=== PATIENT | male | born 1950 | race Caucasian/White ===

== ENCOUNTER 2017-04-04 13:06 | Inpatient (IN) ==
[2017-04-04 14:16] LABS: Bilirubin,Urine Small (Negative); Blood,Urine Negative (Negative); Clarity,Urine Clear (Clear); Color,Urine Dark Yellow (Yellow); Glucose,Urine (UA) Normal (Normal); Ketones,Urine Trace mg/dL (Negative); Leukocyte Esterase,Urine Negative (Negative); Nitrite,Urine Negative (Negative); PH,Urine 5.5 pH Units (5.0-8.0); Protein,Urine 30 mg/dL (Neg-Trace); Specific Gravity,Urine 1.028 (1.010-1.025); Urobilinogen,Urine Normal (Normal)
[2017-04-04 14:18] LABS: Bacteria,Urine None Seen per hpf (None-Few); Hyaline Casts,Urine Moderate per lpf (None-Few); Squamous Epithelial Cell,Urine Many per lpf (None-Few)
[2017-04-04] MEDS ORDERED: *HR* FentaNYL (PF) 100 MCG/2 ML VIAL IVP ONE (14:26)
[2017-04-04] MEDS ORDERED: 0.9 % Sodium Chloride 1,000 ML IVC ONE (14:26)
--- NOTE | 2017-04-04 14:26 | Emergency Department Note ---
Disposition Clinical Impression: Intra-abdominal free air of unknown etiology Colon cancer Qualifiers: Colon location: transverse Qualified Code(s): C18.4 - Malignant neoplasm of transverse colon Abdominal pain Qualifiers: Abdominal location: generalized Qualified Code(s): R10.84 - Generalized abdominal pain Hypotension Qualifiers: Hypotension type: unspecified hypotension type Qualified Code(s): I95.9 - Hypotension, unspecified Disposition: Admitted As Inpatient Condition: Good Time of Disposition: 18:28 General Adult HPI - General Chief complaint: ED Shortness of Breath/Dyspnea Stated complaint: WILY,ABD Pain Time Seen by Provider: 04/04/17 14:14 Source: patient Limitations: no limitations Nursing Notes Reviewed: Yes Vital Signs Reviewed: Yes - History of Present Illness HPI Narrative: 1 week history of increasing abdominal pain and shortness of breath. Does have a history of peritoneal and colon cancer. Does report some nausea no vomiting. Denies any urinary symptoms. States the pain does not radiate. It is a diffuse abdominal pain. States that his shortness of breath has been getting increasingly worse over the past week. He does have dyspnea on exertion. Used to be whenever he climbs a hill but now it is just walking on flat ground. Pain Scale: 8 - Related Data Home Medications Medication Instructions Recorded Confirmed Amlodipine Besylate 10 mg PO DAILY 04/15/16 03/21/17 Atenolol 100 mg PO DAILY 04/15/16 03/21/17 Cholecalciferol (Vitamin D3) 5,000 unit PO DAILY 04/15/16 03/21/17 [Vitamin D3] Fluticasone Propionate Nasal 50 mcg NS BID PRN 04/15/16 03/21/17 [Flonase] Glucosamine Sulfate Dipot Chlr 1,000 mg PO DAILY 04/15/16 03/21/17 [Glucosamine] Gabapentin [Neurontin] 100 mg PO QAM 02/28/17 03/21/17 Gabapentin [Neurontin] 200 mg PO BID 02/28/17 03/21/17 Lidocaine/Prilocaine CREAM [Emla] 1 gm TP AD PRN 04/04/17 04/04/17 Omeprazole [PriLOSEC] 40 mg PO DAILY 04/04/17 04/04/17 Previous Rx's Medication Instructions Recorded Ondansetron [Zofran] 4 mg PO Q8HR PRN #90 tablet 05/14/16 Prochlorperazine Maleate 10 mg PO Q8HR PRN #90 tablet 05/14/16 [Compazine] OxyCODONE Immed Rel [Roxicodone 5 5 mg PO DAILY PRN #30 tab 01/07/17 MG] Capecitabine [Xeloda] 1,500 mg PO BID #112 tablet 03/08/17 Allergies Allergy/AdvReac Type Severity Reaction Status Date / Time lisinopril Allergy Swelling Verified 04/04/17 13:54 of Lip/Tongue/Throat All systems ED: reviewed and negative except as stated. Constitutional: Denies: fever, chills ENT ED: Denies: congestion Cardiovascular: Reports: dyspnea on exertion. Denies: chest pain, palpitations , syncope Respiratory: Reports: dyspnea. Denies: cough, wheezes, hemoptysis Gastrointestinal: Reports: abdominal pain, nausea. Denies: vomiting, diarrhea, hematemesis, melena, hematochezia Genitourinary: Denies: urgency, dysuria, frequency, hematuria Musculoskeletal: Denies: back pain, neck pain Integumentary: Denies: rash, abrasion Neurological: Denies: headache, weakness, numbness, paresthesias Past Medical History - Past Medical History Attestation: Yes The following information was validated with the patient. Source: patient Medical history: Reports: cancer, hyperlipidemia, hypertension, other Psychiatric history: Reports: no psych history - Social History Smoking Status: Current some day smoker Smokeless Tobacco Status: No Alcohol use: Reports: none Drug use: Reports: none Physical Exam - General Limitations: no limitations General appearance: alert, in distress (Appears comfortable in bed.) - Head Head exam: atraumatic, normocephalic, normal inspection - Eye Eye exam: Present: normal appearance, PERRL, EOMI. Absent: scleral icterus - ENT ENT exam: normal exam, normal oropharynx, mucous membranes moist - Neck Neck exam: Present: normal inspection, full ROM, trachea midline. Absent: tenderness, meningismus, lymphadenopathy - Chest Chest inspection: Present: normal inspection, symmetric chest wall rise. Absent : tenderness - Respiratory Respiratory exam: Present: normal lung sounds bilaterally, other (Appears mildly get on exam.) - Cardiovascular Cardiovascular exam: Present: regular rate, normal rhythm, normal heart sounds - Abdominal Exam Abdominal exam: Present: soft, tenderness (Diffusely), guarding, normal bowel sounds, other (Exam difficult due to patient guarding. Does appear to be a rounded abdomen. Not scaphoid I do not appreciate a fluid wave.). Absent: organomegaly - Extremities Exam Extremities exam: Present: normal inspection, full ROM, normal capillary refill. Absent: tenderness, pedal edema - Back Exam Back exam: Present: normal inspection, full ROM. Absent: tenderness - Neurological Exam Neurological exam: Present: alert, oriented X3 - Psychiatric Psychiatric exam: Present: normal affect, normal mood - Skin Skin exam: Present: warm, dry, intact, other (Scleral jaundice). Absent: rash Course Course Narrative: Patient with a history of stage IV peritoneal cancer presenting to the emergency department complaining of increasing shortness of breath and increasing abdominal pain. He is currently on Chemotherapy. He states that his shortness of breath has been getting worse. Is generally just with walking up hills but now he cannot walk on flat surface without getting dyspneic. His abdominal pain is changed from his normal abdominal pain. He states he generally has this in the upper abdomen and now it is very significant in the lower abdomen. Is also mildly hypotensive while here. He is not tachycardic. He does have some mild jaundice sclera. He is lying back in bed and appears mildly dyspneic. His lungs sound relatively clear. His abdomen is diffusely tender. His abdomen is rounded but not taut. There is no fluid wave. He does guard the exam. He denies any urinary symptoms. We will get basic lab workup on patient chest x-ray and abdominal CT. We will provide him with fluids and pain medication. - Reevaluation(s) Reevaluation #1: Patient has free air on CT of his abdomen. I discussed this with the general surgeon who states that this could possibly be a normal sign from his cancer. He states that he will follow the patient in the hospital and to admit to the hospitalist. We have started him on Zosyn for antibiotic. Patient is agreeable to admission at this time. We will also scan patient's chest due to his dyspnea. His CTA was negative for a pulmonary embolism. We will admit patient to the hospital. - Consultations Consultation #1: I spoke with Dr. Faye. He is advising that this is not a surgical emergency. He states he will consult with the patient while he is here. He states that he does believe Zosyn is appropriate antibiotic for the situation. He believes that this is related to his colon and peritoneal cancer. We will admit to the hospitalist. Time: 15:30 Consultation #2: Spoke with Laya nurse practitioner. She accepted patient in stable condition. Time: 16:55 Vital Signs Temperature 98.1 F 04/04/17 13:55 Pulse Rate 81 04/04/17 13:55 Respiratory Rate 20 04/04/17 13:55 Blood Pressure 82/47 04/04/17 13:55 O2 Sat by Pulse Oximetry 100 04/04/17 13:55 Temperature 98.1 F 04/04/17 13:55 Pulse Rate 65 04/04/17 16:07 Respiratory Rate 16 04/04/17 17:33 Blood Pressure 104/61 04/04/17 17:33 O2 Sat by Pulse Oximetry 98 04/04/17 16:07 Oxygen Delivery Oxygen Delivery Room Air Medical Decision Making - Medical Records Medical records reviewed: Yes I reviewed the patient's medical records. - Lab Data Lab results reviewed: Yes I reviewed the patient's lab results. Result diagrams: 04/04/17 15:10 04/04/17 15:10 Lab Results 04/04/17 04/04/17 04/04/17 Range/Units 13:25 15:10 15:10 WBC 6.7 (4.3-11.1) K/mcL RBC 3.59 L (4.19-5.50) M/mcL Hgb 9.4 L (12.9-16.9) g/dL Hct 30.2 L (37.5-50.1) % MCV 84.1 (83.0-100.0) fL MCH 26.2 L (28.0-33.3) pg MCHC 31.1 L (31.6-35.5) g/dL RDW 22.9 H (11.5-14.5) % Plt Count 360 (140-400) K/mcL MPV 9.7 (9.4-12.4) fL Immature Gran % 0.3 (0-4) % Seg Neutrophils % 85.0 % Lymphocytes % 4.5 % Monocytes % 10.1 % Eosinophils % 0.0 % Basophils % 0.1 % Neutrophils # 5.7 (1.6-8.9) K/mcL Lymphocytes # 0.3 L (0.6-4.6) K/mcL Monocytes # 0.7 (0.0-1.3) K/mcL Eosinophils # 0.0 (0.0-0.6) K/mcL Basophils # 0.0 (0.0-0.2) K/mcL Platelet Estimate Normal (Normal) Anisocytosis 1+ A (Not Present) Microcytosis Present A (Not Present) PT (9.4-12.1) Seconds INR Sodium 133 L (136-145) mEq/L Potassium 3.5 (3.5-4.5) mEq/L Chloride 106 (98-109) mEq/L Carbon Dioxide 14 L (19-29) mEq/L BUN 29 H (8-26) mg/dL Creatinine 1.43 H (0.72-1.25) mg/dL Est GFR ( Amer) 60 (> 60) Est GFR (Non-Af Amer) 49 L (> 60) BUN/Creatinine Ratio 20 (6-26) Glucose 94 (70-99) mg/dL Calculated Osmolality 282 (280-300) Calcium 8.7 (8.6-10.8) mg/dL Total Bilirubin 0.7 (0.2-1.2) mg/dL AST 19 (5-34) Units/L ALT 14 (0-55) Units/L Alkaline Phosphatase 79 (38-126) Units/L Troponin I (0-0.03) ng/mL Serum Total Protein 5.7 L (6.0-8.3) g/dL Albumin 2.0 L (3.5-5.0) g/dL Globulin 3.7 H (2.4-3.5) g/dL Albumin/Globulin Ratio 0.5 L (1.1-2.2) Amylase 42 (25-125) Units/L Lipase 33 (8-78) Units/L Urine Color Dark Yellow (Yellow) Urine Clarity Clear (Clear) Urine pH 5.5 (5.0-8.0) pH Units Ur Specific Polaris 1.028 H (1.010-1.025) Urine Protein 30 H (Neg-Trace) mg/dL Urine Glucose (UA) Normal (Normal) mg/dL Urine Ketones Trace H (Negative) mg/dL Urine Blood Negative (Negative) Urine Nitrite Negative (Negative) Urine Bilirubin Small H (Negative) Urine Urobilinogen Normal (Normal) mg/dL Ur Leukocyte Esterase Negative (Negative) Urine Microscopic RBC 3-5 H (0-3) per hpf Urine Microscopic WBC 3-5 H (0-3) per hpf Ur Squamous Epith Cells Many H (None-Few) per lpf Urine Bacteria None Seen (None-Few) per hpf Hyaline Casts Moderate H (None-Few) per lpf Ur Culture Indicated? NO (NO) 04/04/17 04/04/17 Range/Units 15:10 16:06 WBC (4.3-11.1) K/mcL RBC (4.19-5.50) M/mcL Hgb (12.9-16.9) g/dL Hct (37.5-50.1) % MCV (83.0-100.0) fL MCH (28.0-33.3) pg MCHC (31.6-35.5) g/dL RDW (11.5-14.5) % Plt Count (140-400) K/mcL MPV (9.4-12.4) fL Immature Gran % (0-4) % Seg Neutrophils % % Lymphocytes % % Monocytes % % Eosinophils % % Basophils % % Neutrophils # (1.6-8.9) K/mcL Lymphocytes # (0.6-4.6) K/mcL Monocytes # (0.0-1.3) K/mcL Eosinophils # (0.0-0.6) K/mcL Basophils # (0.0-0.2) K/mcL Platelet Estimate (Normal) Anisocytosis (Not Present) Microcytosis (Not Present) PT 16.5 H (9.4-12.1) Seconds INR 1.5 Sodium (136-145) mEq/L Potassium (3.5-4.5) mEq/L Chloride (98-109) mEq/L Carbon Dioxide (19-29) mEq/L BUN (8-26) mg/dL Creatinine (0.72-1.25) mg/dL Est GFR ( Amer) (> 60) Est GFR (Non-Af Amer) (> 60) BUN/Creatinine Ratio (6-26) Glucose (70-99) mg/dL Calculated Osmolality (280-300) Calcium (8.6-10.8) mg/dL Total Bilirubin (0.2-1.2) mg/dL AST (5-34) Units/L ALT (0-55) Units/L Alkaline Phosphatase (38-126) Units/L Troponin I 0.01 (0-0.03) ng/mL Serum Total Protein (6.0-8.3) g/dL Albumin (3.5-5.0) g/dL Globulin (2.4-3.5) g/dL Albumin/Globulin Ratio (1.1-2.2) Amylase (25-125) Units/L Lipase (8-78) Units/L Urine Color (Yellow) Urine Clarity (Clear) Urine pH (5.0-8.0) pH Units Ur Specific Polaris (1.010-1.025) Urine Protein (Neg-Trace) mg/dL Urine Glucose (UA) (Normal) mg/dL Urine Ketones (Negative) mg/dL Urine Blood (Negative) Urine Nitrite (Negative) Urine Bilirubin (Negative) Urine Urobilinogen (Normal) mg/dL Ur Leukocyte Esterase (Negative) Urine Microscopic RBC (0-3) per hpf Urine Microscopic WBC (0-3) per hpf Ur Squamous Epith Cells (None-Few) per lpf Urine Bacteria (None-Few) per hpf Hyaline Casts (None-Few) per lpf Ur Culture Indicated? (NO) - Radiology Data Radiology results reviewed: Yes I reviewed the patient's radiology results. Chest X-Ray 04/04/17 14:01 IMPRESSION: Possible atelectatic changes at the right lung base. Otherwise, no acute abnormalities seen in the chest D/ / Ja Zuleta MD / Ja Zuleta MD Interpreting Provider: Ja Zuleta MD Abdomen/Pelvis CT 04/04/17 14:21 IMPRESSION: 1. Increasing abdominal ascites when compared with previous exam with multiple locules of free intraperitoneal gas identified along the anterior abdomen. Findings compatible with perforated viscus. Origin of the free air is indeterminate, however, the majority of the gas is seen just anterior to the transverse colon. 2. Circumferential wall thickening of long segment of small bowel within the mid and lower abdomen suggestive of enteritis. 3. Increasing infiltration of the mesentery with numerous soft tissue implant identified throughout the left abdomen similar to previous exams compatible with peritoneal carcinomatosis. Critical results were called by Dr. Jaylen Barrera MD to Dr. Taylor On 04/04/2017 at 15:21. D/ / Jaylen Barrera MD / Jaylen Barrera MD Interpreting Provider: Jaylen Barrera MD Chest CTA 04/04/17 15:48 IMPRESSION: 1. No pulmonary embolism. No acute abnormality in the chest. 2. Large multinodular thyroid goiter, with substernal extension. 3. Stable 1.6 cm subcarinal lymph node. 4. Abdominal ascites and peritoneal carcinomatosis, which was described on the CT abdomen exam obtained earlier the same day. D/ /04/2017 16:45:38 Mulugeta Grande MD / dee Interpreting Provider: Mulugeta Grande MD Critical Care Time Critical Care Time: Yes Total Critical Care Time: 35 Attestation: Critical care time managing patient's abdominal pain, cancer, hypotension. 35 minutes. Attestation Statement - Attestation Attestation: Patient was seen with resident physician. I reviewed the history, physical, assessment and plan, and agree with the findings. I also personally evaluated this patient and had [id number] time with this patient. 58-year-old male presents to the emergency department with chief complaint of abdominal pain abdominal distention and short of breath. Symptoms are beginning progressively worse for the last day or so. Patient is a history of abdominal cancer. He is encouraged to come in by his oncology doctor. On examination vital signs are initially somewhat hypotensive, but this improved with fluid resuscitation.. ENT is unremarkable. Heart normal. Lungs clear. Abdomen distended and tender diffusely. Extremities unremarkable. Neurologically intact. ED course labs revealed anemia and some mild metabolic derangement. CT scan however showed possible free air in the abdomen. Surgery was contacted and felt this was probably a minor finding more incidental to the patient's condition than actual bowel perforation. Suggested admission to hospitalist service. We contacted the hospitalist service to arrange for admission accordingly. Patient was started on antibiotics while in the emergency department. He was also given fluid resuscitation. Hospitalist agreed to accept him for admission, surgery will see him on the floor. Agree with resident physician assessment and plan. Critical care time 35 minutes.
[2017-04-04 15:15] LABS: Basophils % 0.1 %; Hematocrit 30.2 % (37.5-50.1); Hemoglobin 9.4 g/dL (12.9-16.9); Immature Granulocytes % 0.3 % (0-4); Lymphocytes # 0.3 K/mcL (0.6-4.6); Lymphocytes % 4.5 %; Mean Corpuscular HGB Conc 31.1 g/dL (31.6-35.5); Mean Corpuscular Hemoglobin 26.2 pg (28.0-33.3); Mean Corpuscular Volume 84.1 fL (83.0-100.0); Mean Platelet Volume 9.7 fL (9.4-12.4); Monocytes # 0.7 K/mcL (0.0-1.3); Monocytes % 10.1 %; Neutrophils # 5.7 K/mcL (1.6-8.9); Platelet Count 360 K/mcL (140-400); Red Blood Count 3.59 M/mcL (4.19-5.50); Red Cell Distribution Width 22.9 % (11.5-14.5)
[2017-04-04] MEDS ORDERED: Piperacillin/Tazobactam 3.375 GM in D5% in Water (Mini-Bag+) 100 ML IVPB ONE (15:22)
[2017-04-04 15:34] LABS: Anisocytosis 1+ (Not Present)
[2017-04-04 15:35] LABS: Microcytosis Present (Not Present)
[2017-04-04 15:36] LABS: Albumin/Globulin Ratio 0.5 (1.1-2.2); Bilirubin,Total 0.7 mg/dL (0.2-1.2); Calcium 8.7 mg/dL (8.6-10.8); Globulin 3.7 g/dL (2.4-3.5); Platelet Estimate Normal (Normal); Potassium 3.5 mEq/L (3.5-4.5); Total Protein 5.7 g/dL (6.0-8.3)
--- NOTE | 2017-04-04 16:10 | General Surgery Consult Note ---
<Renetta Rosa - Last Filed: 04/04/17 15:57> Date of Encounter: 04/04/17 Time of Encounter: 15:15 Assessment and Plan (1) Free intraperitoneal air Current Visit: Yes Status: Acute Treat conservatively at this time including: Bowel rest- NPO except ice chips sparingly IV fluids IV antibiotics- Zosyn Serial abdominal exams Repeat am labs CT scan with free air most likely consistent with progression of the patient's colon cancer Free fluid on CT is most consistent with ascites consistent with progression of the patient's colon cancer Consider repeat CT scan of abdomen/pelvis with contrast in the next 24-48 hours Surgical intervention not recommended at this time (2) Abdominal pain Current Visit: Yes Status: Acute Treat conservatively at this time including: Bowel rest- NPO except ice chips sparingly IV fluids IV antibiotics- Zosyn Serial abdominal exams Repeat am labs CT scan with free air most likely consistent with progression of the patient's colon cancer Free fluid on CT is most consistent with ascites consistent with progression of the patient's colon cancer Consider repeat CT scan of abdomen/pelvis with contrast in the next 24-48 hours Surgical intervention not recommended at this time. Qualifiers: Abdominal location: generalized Qualified Code(s): R10.84 - Generalized abdominal pain (3) Colon cancer Current Visit: No Status: Chronic Patient follows with [facility]- Dr. Gordon Consider inpatient consultation Patient's pain/free air is most likely related to progression of his colon cancer The patient is not a surgical candidate for his colon cancer and has been evaluated at [facility] for a second opinion. He is currently receiving chemotherapy. Last dose of chemotherapy was 2 weeks ago. Qualifiers: Colon location: transverse Qualified Code(s): C18.4 - Malignant neoplasm of transverse colon (4) Acute kidney injury Current Visit: Yes Status: Acute IV fluids Avoid nephrotoxic medications Management per medicine service History of Present Illness Consult date: 04/04/17 Requesting physician: Pavithra Huston History of present illness: Mr. Harley is a 66 year old male with a past medical history significant for HTN, HLD, GERD and stage 4 colon cancer with carcinomatosis. He reports to the ED today with a 1 week history of lower abdominal pain. He states that he has had abdominal pain at a baseline for months. However, the pain has been more intense over the past 1 week. He states that the pain intensified this morning. He reports a sharp and stabbing pain which is mostly constant. He states that certain positions help the pain to feel better. Movement makes the pain worse. He reports fevers/chills for a few months. His last fever was was 3 days ago and was 101.2 per the patient's . She states that he has episodes of night sweats routinely. Admits to nausea and vomiting last week but none currently. He does admit to bloating and states that he has no appetite. He has early satiety. He does report diarrhea over the past 1 week, multiple times per day. Denies any melena or hematochezia. Admits to shortness of breath which is worse today. Denies any chest pains. Admits to feeling weak and dizzy. Denies any difficulty with urination. He is currently receiving chemotherapy for treatment of his stage 4 colon cancer and he follows with Dr. [facility] office. He reports that he received his last dose of chemotherapy 2 weeks ago. His next scheduled dose is 1 week from today. Past Med Surg Social Fam HX - Past Medical History Source: patient Medical history: cancer (stage 4 colon cancer with carcinomatosis), GERD, hyperlipidemia, hypertension, other Psychiatric history: no psych history - Past Surgical History Surgical History: other (tonsillectomty, colonoscopy in April 2016) - Social History Smoking Status: Current some day smoker Smokeless Tobacco Status: No Alcohol use: none Drug use: none Current living situation: Home - Independent Activity Level: Independent ambulation - Family History Father Living Status: Hx Family Cancer: Yes (colon cancer) Medications and Allergies Amlodipine Besylate 10 mg PO DAILY 04/15/16 [History] Atenolol 100 mg PO DAILY 04/15/16 [History] Cholecalciferol (Vitamin D3) [Vitamin D3] 5,000 unit PO DAILY 04/15/16 [History] Fluticasone Propionate Nasal [Flonase] 50 mcg NS BID PRN 04/15/16 [History] Glucosamine Sulfate Dipot Chlr [Glucosamine] 1,000 mg PO BID 04/15/16 [History] Ondansetron [Zofran] 4 mg PO Q8HR PRN #90 tablet 05/14/16 [Rx] Prochlorperazine Maleate [Compazine] 10 mg PO Q8HR PRN #90 tablet 05/14/16 [Rx] OxyCODONE Immed Rel [Roxicodone 5 MG] 5 mg PO DAILY PRN #30 tab 01/07/17 [Rx] Gabapentin [Neurontin] 100 mg PO QAM 02/28/17 [History] Gabapentin [Neurontin] 200 mg PO BID 02/28/17 [History] Capecitabine [Xeloda] 1,500 mg PO BID #112 tablet 03/08/17 [Rx] Lidocaine/Prilocaine CREAM [Emla] 1 gm TP AD PRN 04/04/17 [History] Omeprazole [PriLOSEC] 40 mg PO DAILY 04/04/17 [History] 3 Allergy/AdvReac Type Severity Reaction Status Date / Time lisinopril Allergy Swelling Verified 04/04/17 13:54 of Lip/Tongue/Throat Review of Systems All systems PM: reviewed and no additional remarkable complaints except as stated (in the HPI) All systems PM: A 10-system review of systems was performed and is negative for pertinent findings except as documented above in the HPI. General Surgery Exam Initial Vital Signs Temp Pulse Resp BP Pulse Ox 98.1 F 81 20 82/47 100 04/04/17 13:55 04/04/17 13:55 04/04/17 13:55 04/04/17 13:55 04/04/17 13:55 - General physical appearance well developed, well nourished, moderate distress, moderate pain, chronically ill, obese - ENT normal mucosa, atraumatic, normocephalic - Neck trachea midline - Respiratory clear to auscultation - Cardiovascular Cardiovascular exam: Present: RRR - Abdomen Abdomen general surgery: Present: soft, distended, tender Abdominal Tenderness: Present: diffusely (most of pain focused across lower abdomen) - Integumentary Integumentary general surgery: Present: warm and dry - Neurologic Present: CN 2-12 grossly intact - Psychiatric Psychiatric general surgery: Present: A&Ox3 Exam Initial Vital Signs Temp Pulse Resp BP Pulse Ox 98.1 F 81 20 82/47 100 04/04/17 13:55 04/04/17 13:55 04/04/17 13:55 04/04/17 13:55 04/04/17 13:55 Results - Labs 04/04/17 15:10 04/04/17 15:10 Abnormal lab results RBC 3.59 M/mcL (4.19-5.50) L 04/04/17 15:10 Hgb 9.4 g/dL (12.9-16.9) L 04/04/17 15:10 Hct 30.2 % (37.5-50.1) L 04/04/17 15:10 MCH 26.2 pg (28.0-33.3) L 04/04/17 15:10 MCHC 31.1 g/dL (31.6-35.5) L 04/04/17 15:10 RDW 22.9 % (11.5-14.5) H 04/04/17 15:10 Lymphocytes # 0.3 K/mcL (0.6-4.6) L 04/04/17 15:10 Anisocytosis 1+ (Not Present) A 04/04/17 15:10 Microcytosis Present (Not Present) A 04/04/17 15:10 Sodium 133 mEq/L (136-145) L 04/04/17 15:10 Carbon Dioxide 14 mEq/L (19-29) L 04/04/17 15:10 BUN 29 mg/dL (8-26) H 04/04/17 15:10 Creatinine 1.43 mg/dL (0.72-1.25) H 04/04/17 15:10 Est GFR (Non-Af Amer) 49 (> 60) L 04/04/17 15:10 Serum Total Protein 5.7 g/dL (6.0-8.3) L 04/04/17 15:10 Albumin 2.0 g/dL (3.5-5.0) L 04/04/17 15:10 Globulin 3.7 g/dL (2.4-3.5) H 04/04/17 15:10 Albumin/Globulin Ratio 0.5 (1.1-2.2) L 04/04/17 15:10 Ur Specific [place] 1.028 (1.010-1.025) H 04/04/17 13:25 Urine Protein 30 mg/dL (Neg-Trace) H 04/04/17 13:25 Urine Ketones Trace mg/dL (Negative) H 04/04/17 13:25 Urine Bilirubin Small (Negative) H 04/04/17 13:25 Urine Microscopic RBC 3-5 per hpf (0-3) H 04/04/17 13:25 Urine Microscopic WBC 3-5 per hpf (0-3) H 04/04/17 13:25 Ur Squamous Epith Cells Many per lpf (None-Few) H 04/04/17 13:25 Hyaline Casts Moderate per lpf (None-Few) H 04/04/17 13:25 Diabetes panel 04/04/17 Range/Units 15:10 Sodium 133 L (136-145) mEq/L Potassium 3.5 (3.5-4.5) mEq/L Chloride 106 (98-109) mEq/L Carbon Dioxide 14 L (19-29) mEq/L BUN 29 H (8-26) mg/dL Creatinine 1.43 H (0.72-1.25) mg/dL Glucose 94 (70-99) mg/dL Calcium 8.7 (8.6-10.8) mg/dL AST 19 (5-34) Units/L ALT 14 (0-55) Units/L Alkaline Phosphatase 79 (38-126) Units/L Albumin 2.0 L (3.5-5.0) g/dL Calcium panel 04/04/17 Range/Units 15:10 Calcium 8.7 (8.6-10.8) mg/dL Albumin 2.0 L (3.5-5.0) g/dL Pituitary panel 04/04/17 Range/Units 15:10 Sodium 133 L (136-145) mEq/L Potassium 3.5 (3.5-4.5) mEq/L Chloride 106 (98-109) mEq/L Carbon Dioxide 14 L (19-29) mEq/L BUN 29 H (8-26) mg/dL Creatinine 1.43 H (0.72-1.25) mg/dL Glucose 94 (70-99) mg/dL Calcium 8.7 (8.6-10.8) mg/dL Adrenal panel 04/04/17 Range/Units 15:10 Sodium 133 L (136-145) mEq/L Potassium 3.5 (3.5-4.5) mEq/L Chloride 106 (98-109) mEq/L Carbon Dioxide 14 L (19-29) mEq/L BUN 29 H (8-26) mg/dL Creatinine 1.43 H (0.72-1.25) mg/dL Glucose 94 (70-99) mg/dL Calcium 8.7 (8.6-10.8) mg/dL Total Bilirubin 0.7 (0.2-1.2) mg/dL AST 19 (5-34) Units/L ALT 14 (0-55) Units/L Alkaline Phosphatase 79 (38-126) Units/L Albumin 2.0 L (3.5-5.0) g/dL All other labs normal. - Imaging CT scan - abdomen: report reviewed CT scan - pelvis: report reviewed Additional studies: Chest X-Ray 04/04/17 14:01 IMPRESSION: Possible atelectatic changes at the right lung base. Otherwise, no acute abnormalities seen in the chest D/ / Ja Zuleta MD / Ja Zuleta MD Interpreting Provider: Ja Zuleta MD Abdomen/Pelvis CT 04/04/17 14:21 IMPRESSION: 1. Increasing abdominal ascites when compared with previous exam with multiple locules of free intraperitoneal gas identified along the anterior abdomen. Findings compatible with perforated viscus. Origin of the free air is indeterminate, however, the majority of the gas is seen just anterior to the transverse colon. 2. Circumferential wall thickening of long segment of small bowel within the mid and lower abdomen suggestive of enteritis. 3. Increasing infiltration of the mesentery with numerous soft tissue implant identified throughout the left abdomen similar to previous exams compatible with peritoneal carcinomatosis. Critical results were called by Dr. Jaylen Barrera MD to Dr. Taylor On 04/04/2017 at 15:21. D/ / Jaylen Barrera MD / Jaylen Barrera MD Interpreting Provider: Jaylen Barrera MD Consult Discharge Plan - Plan Referrals: Dean Landeros MD [Primary Care Provider] - - Attending Attestation For this encounter, I have reviewed the [employer] or PA documentation, treatment plan, and medical decision making; and I have had face to face time with this patient. <Patrick Faye - Last Filed: 04/05/17 08:56> Date of Encounter: 04/04/17 Review of Systems All systems PM: A 10-system review of systems was performed and is negative for pertinent findings except as documented above in the HPI. General Surgery Exam Initial Vital Signs Temp Pulse Resp BP Pulse Ox 98.1 F 81 20 82/47 100 04/04/17 13:55 04/04/17 13:55 04/04/17 13:55 04/04/17 13:55 04/04/17 13:55 Exam Initial Vital Signs Temp Pulse Resp BP Pulse Ox 98.1 F 81 20 82/47 100 04/04/17 13:55 04/04/17 13:55 04/04/17 13:55 04/04/17 13:55 04/04/17 13:55 Results - Labs 04/05/17 05:03 04/05/17 05:03 Abnormal lab results RBC 3.59 M/mcL (4.19-5.50) L 04/04/17 15:10 Hgb 9.4 g/dL (12.9-16.9) L 04/04/17 15:10 Hct 30.2 % (37.5-50.1) L 04/04/17 15:10 MCH 26.2 pg (28.0-33.3) L 04/04/17 15:10 MCHC 31.1 g/dL (31.6-35.5) L 04/04/17 15:10 RDW 22.9 % (11.5-14.5) H 04/04/17 15:10 Lymphocytes # 0.3 K/mcL (0.6-4.6) L 04/04/17 15:10 Anisocytosis 1+ (Not Present) A 04/04/17 15:10 Microcytosis Present (Not Present) A 04/04/17 15:10 PT 16.5 Seconds (9.4-12.1) H 04/04/17 16:06 Sodium 133 mEq/L (136-145) L 04/04/17 15:10 Carbon Dioxide 14 mEq/L (19-29) L 04/04/17 15:10 BUN 29 mg/dL (8-26) H 04/04/17 15:10 Creatinine 1.43 mg/dL (0.72-1.25) H 04/04/17 15:10 Est GFR (Non-Af Amer) 49 (> 60) L 04/04/17 15:10 Serum Total Protein 5.7 g/dL (6.0-8.3) L 04/04/17 15:10 Albumin 2.0 g/dL (3.5-5.0) L 04/04/17 15:10 Globulin 3.7 g/dL (2.4-3.5) H 04/04/17 15:10 Albumin/Globulin Ratio 0.5 (1.1-2.2) L 04/04/17 15:10 Ur Specific [place] 1.028 (1.010-1.025) H 04/04/17 13:25 Urine Protein 30 mg/dL (Neg-Trace) H 04/04/17 13:25 Urine Ketones Trace mg/dL (Negative) H 04/04/17 13:25 Urine Bilirubin Small (Negative) H 04/04/17 13:25 Urine Microscopic RBC 3-5 per hpf (0-3) H 04/04/17 13:25 Urine Microscopic WBC 3-5 per hpf (0-3) H 04/04/17 13:25 Ur Squamous Epith Cells Many per lpf (None-Few) H 04/04/17 13:25 Hyaline Casts Moderate per lpf (None-Few) H 04/04/17 13:25 All other labs normal. - Attending Attestation With the above assessment and evaluation with the nurse practitioner and agree with the overall plan. Very extensive history of having been diagnosed with transverse colon cancer. Colonoscopy with evidence of carcinomatosis identified by CT scan as well as MRI. The patient is currently undergoing chemotherapy and is being followed by the [facility]. He states that most of the time he did not have any abdominal pain but he has been having abdominal pain that comes in waves for the past week. He admits to some fever and chill symptoms but that is been sometimes related to his chemotherapy treatments. Because of the persistent abdominal pain that he had today presented himself to [facility]. CT scan of the abdomen and pelvis demonstrated some free air (small areas rear) at the level of the transverse colon near the region of his diagnosis transverse colon cancer. Surgery the CT scan images and report and on physical examination the patient is noted to have more lower abdominal pain and upper but is tender to palpation in the upper abdominal region. No erythema along the abdominal wall. Isolated to the patient and family that is likely that the free air is from the region of the transverse colon where his carcinoma is located as opposed to small perforated sigmoid diverticulum. He does have sigmoid diverticulosis without signs of diverticulitis. Unfortunately, he does have what appears to be increased ascites, fluid in the pelvis, and extensive increase in thickening of the omentum which is likely progression of his cancer versus anasarca and increased fluid within the omental planes. I am concerned that he is having progression of his cancer despite his chemotherapy treatments. I do not think he requires any type of surgical interventionat this time and I explained to the patient and family that I think that the potential progression of his cancer is causing almost a restrictive process of his abdomen or by noting the extension of his cancer becomes more uncomfortable to take deep breaths . Unfortunately I think that the isolated area of perforation may have less to do with his pain then the suspected advancement of his carcinomatosis. I do think it is appropriate to start with IV antibiotics and IV fluid and we will make sure that oncology as well. Will follow with you.
[2017-04-04 16:18] LABS: INR 1.5; Prothrombin Time 16.5 Seconds (9.4-12.1)
[2017-04-04] MEDS: *HR* HYDROmorphone (PF) 1 MG/ML SYRINGE IVP PRN ×2 (17:02→21:29)
--- NOTE | 2017-04-04 21:14 | Electrocardiograph Report ---
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
--- NOTE | 2017-04-05 00:38 | Internal Med History&Physical ---
Date of Encounter: 04/05/17 Time of Encounter: 00:35 Assessment and Plan (1) Free intraperitoneal air Current visit: Yes Status: Acute Patient with stage IV: cancer presents with abdominal pain. CT shows free air. Likely due to perforated viscous. Surgical team has evaluated the patient and managing patient conservatively. We will keep NPO hydrate gently will give antibiotics Zosyn Flagyl. Appreciate surgery and oncology recommendations. Patients receive heparin famotidine for DVT and peptic ulcer disease prophylaxis. Internal Medicine - H&P: HPI History of present illness: Mr. Harley is a 66 year old male stage 4 colon cancer with carcinomatosis presents to the ED with a 1 week history of lower abdominal pain that worsens with movement, associated with fevers/chills up to 101.2 according to patient's , in addition to nausea. He still moves his bowel and is passing gas. He denies any melena or hematochezia. He has been SOB with exertion. He is currently receiving chemotherapy for treatment of his stage 4 colon cancer. Past Med Surg Social Fam HX - Past Medical History Medical history: cancer, hyperlipidemia, hypertension, other Psychiatric history: no psych history - Past Surgical History Surgical History: other - Social History Smoking Status: Current some day smoker Smokeless Tobacco Status: No Alcohol use: none Drug use: none - Family History Father Living Status: Hx Family Cancer: Yes (colon) Internal Medicine - H&P: Meds Amlodipine Besylate 10 mg PO DAILY 04/15/16 [History] Atenolol 100 mg PO DAILY 04/15/16 [History] Cholecalciferol (Vitamin D3) [Vitamin D3] 5,000 unit PO DAILY 04/15/16 [History] Fluticasone Propionate Nasal [Flonase] 50 mcg NS BID PRN 04/15/16 [History] Glucosamine Sulfate Dipot Chlr [Glucosamine] 1,000 mg PO BID 04/15/16 [History] Ondansetron [Zofran] 4 mg PO Q8HR PRN #90 tablet 05/14/16 [Rx] Prochlorperazine Maleate [Compazine] 10 mg PO Q8HR PRN #90 tablet 05/14/16 [Rx] OxyCODONE Immed Rel [Roxicodone 5 MG] 5 mg PO DAILY PRN #30 tab 01/07/17 [Rx] Gabapentin [Neurontin] 100 mg PO QAM 02/28/17 [History] Gabapentin [Neurontin] 200 mg PO BID 02/28/17 [History] Capecitabine [Xeloda] 1,500 mg PO BID #112 tablet 03/08/17 [Rx] Lidocaine/Prilocaine CREAM [Emla] 1 gm TP AD PRN 04/04/17 [History] Omeprazole [PriLOSEC] 40 mg PO DAILY 04/04/17 [History] 3 Allergy/AdvReac Type Severity Reaction Status Date / Time lisinopril Allergy Swelling Verified 04/04/17 13:54 of Lip/Tongue/Throat All Systems PM: A 10-system review of systems was performed and is negative for pertinent findings except as documented above in the HPI. Review of systems: 10 point review of systems is negative except for HPI - Constitutional Vitals: Temp Pulse Resp BP Pulse Ox 96.9 F L 58 18 103/66 93 04/04/17 23:54 04/04/17 23:54 04/04/17 23:54 04/04/17 23:54 04/04/17 23:54 Internal Med - H&P Results - Labs CBC & Chem 7: 04/04/17 15:10 04/04/17 15:10
[2017-04-05] MEDS ORDERED: 0.9 % Sodium Chloride 1,000 ML IVC SCH ×3 (00:45→08:00)
[2017-04-05] MEDS ORDERED: *HR* Morphine 2 MG/ML SYRINGE IVP PRN (02:01)
[2017-04-05] MEDS ORDERED: *HR* Dextrose 50 % in Water (Syg) 50 ML SYRINGE IVP ONE (05:17)
[2017-04-05] MEDS: *HR* Heparin 5,000 UNIT/ML VIAL SQ SCH ×2 (05:38→16:46)
[2017-04-05 05:39] LABS: Hemoglobin 9.7 g/dL (12.9-16.9); Mean Corpuscular HGB Conc 30.3 g/dL (31.6-35.5); Mean Corpuscular Hemoglobin 26.1 pg (28.0-33.3); Mean Corpuscular Volume 86.3 fL (83.0-100.0); Platelet Count 360 K/mcL (140-400); Red Blood Count 3.71 M/mcL (4.19-5.50); Red Cell Distribution Width 23.6 % (11.5-14.5)
[2017-04-05] MEDS ORDERED: Famotidine 20 MG/2 ML VIAL IVP SCH ×2 (06:00→17:00)
[2017-04-05] MEDS ORDERED: Furosemide 40 MG/4 ML VIAL IVP STA (06:02)
[2017-04-05] MEDS ORDERED: Furosemide 40 MG/4 ML VIAL ONE (06:03)
[2017-04-05 06:04] LABS: Calcium 9.1 mg/dL (8.6-10.8); Magnesium 1.6 mg/dL (1.6-2.6)
[2017-04-05] MEDS ORDERED: Furosemide 20 MG/2 ML VIAL IVP STA (06:08)
[2017-04-05 06:10] LABS: Lymphocytes # 1.1 K/mcL (0.6-4.6); Monocytes # 1.9 K/mcL (0.0-1.3); Platelet Estimate Normal (Normal)
[2017-04-05] MEDS ORDERED: Ipratropium/Albuterol Neb 3 ML IH STA (06:29)
[2017-04-05] MEDS ORDERED: MetroNIDAZOLE 500 MG/100 ML 500 MG/100 ML BAG IVPB SCH (08:00)
[2017-04-05] MEDS: Piperacillin/Tazobactam 3.375 GM in D5% in Water (Mini-Bag+) 100 ML IVPB SCH ×3 (08:05→23:15)
--- NOTE | 2017-04-05 08:42 | Event Note ---
Date of Encounter: 04/05/17 Time of Encounter: 08:42 I independently saw and examined this patient on 04/05/2017 , I have reviewed his chart as well. Diagnoses and management plan was discussed with the patient , his spouse, and the resident physician. 66-year-old male with past medical history of stage IV colon cancer, with ascites and peritoneal carcinomatosis on chemotherapy. Patient is admitted at being managed for sepsis secondary to perforated viscus, acute kidney injury and lactic acidosis. Patient continues to complain of abdominal pain, and continues to have increased work of breathing or shortness of breath. On examination, he is diaphoretic, respiratory rate 20-23, he is hypoxic saturating 94% on 6 L of oxygen. His chest examination reveals bilateral rales. His abdomen is distended but soft, with tenderness right upper quadrant and suprapubic regions. He has no pedal edema. Labs and imaging reviewed new leukocytosis with left shift, hypokalemia potassium of 5.0, creatinine 1.63 greater than baseline lactate 9.8, BNP 662. Stat chest x-ray reveals bilateral atelectasis with pulmonary edema. Assessment and plan #1 severe sepsis with lactic acidosis #2 perforated viscus #3 acute kidney injury #4 acute hypoxic respiratory failure #5 metastatic colon cancer with peritoneal carcinomatosis #6 ascites secondary to colon cancer #7 hypertension Surgery was consulted stat, Dr. Faye. The patient. We will obtaining a repeat abdomen CT with oral contrast. Patient should be transferred to [place] is a monitoring. Patient has elected to be DNR comfort care. Place patient on BiPAP to use topical breathing. Continue pain medications. Continue IV fluid hydration for lactic acidosis and AKA. Repeat lactate in 4 hours. Obtain echocardiogram. Patient is seriously ill, condition is critical, prognosis is guarded. Rest of details as in the resident physicians documentation.
--- NOTE | 2017-04-05 09:15 | General Surgery Progress Note ---
<Lelia Escobar - Last Filed: 04/05/17 09:40> Date of Encounter: 04/05/17 Time of Encounter: 08:45 - Assessment and Plan (1) Free intraperitoneal air Current Visit: Yes Status: Acute No significant change in abdominal exam. Remains with tenderness to palpation in the right upper quadrant, epigastric area, and left lower quadrant. This [employer] and Dr. Faye reviewed with patient the suspected nature of free air related to progression of colon cancer and interventional limits given his cancer history. Reviewed with patient conservative measures at this time, and depending repeat CT and oncology evaluation surgical intervention may or may not be an option. Patient verbalized understanding. Plan: -CT abdomen and pelvis with oral contrast only -continue fluid resuscitation -discomfort management will add scheduled Ofirmev and increase dialogue it to 1 mg every 2 hours. -Bowel rest except medications for CT scan and ice chips Q shift. -Continue IV antibiotics (management per medicine) -Reviewed with Dr.. Edwards and Oncology (Rolanda David) (2) Acute kidney injury Current Visit: Yes Status: Acute Unsure of total fluid resuscitation received as documentation does not reflect. Discussed this with Ariela, bedside RN, who will input an estimate of fluid resuscitation. Noted Arreola catheter in place. Noted patient received a dose of IV lasix. Management per medicine (3) Colon cancer Current Visit: Yes Status: Chronic Oncology is consulted. See above Qualifiers: Colon location: transverse Qualified Code(s): C18.4 - Malignant neoplasm of transverse colon (4) Lactic acidosis Current Visit: Yes Status: Acute Dehydration vs septic in nature. Will continue to follow along with medicine management Subjective Patient reports: voiding w/o difficulty (Per arreola catheter) Narrative: Rishi reports no changes in his abdominal discomfort. He reports that he does feel increased shortness of breath with activity such as walking to the bathroom and speaking. He denies nausea, vomiting, diarrhea. He denies worsening abdominal distention Objective Intake and Output 04/04/17 04/05/17 04/05/17 23:59 07:59 15:59 Other: Meal NPO - General physical appearance well developed, well nourished, moderate distress (Respiratory), moderate pain - Eyes normal ocular movement - ENT atraumatic, normocephalic, Other (Nasal Flaring. Mask in place) - Neck Neck exam: trachea midline - Respiratory other (Decreased bibasilar. No crackles noted.) - Cardiovascular Cardiovascular exam: Present: RRR, distant heart sounds - Abdomen Abdomen: Present: bowel sounds present (faint and hypoactive), soft, tender ( RUQ and LLQ) Hernia: none - Integumentary no rash - Neurologic CN 2-12 grossly intact, normal coordination - Musculoskeletal normal posture - Psychiatric oriented to time, oriented to person, oriented to place, speech is normal, memory intact - Labs 04/05/17 05:03 04/05/17 05:03 Consult Discharge Plan - Plan Referrals: Dean Landeros MD [Primary Care Provider] - <Patrick Faye - Last Filed: 04/05/17 11:22> Date of Encounter: 04/05/17 Objective Intake and Output 04/04/17 04/05/17 04/05/17 23:59 07:59 15:59 Intake Total 82 / 82 Balance 82 / 82 Intake: IV Fluids 82 / 82 0.9 % Sodium Chloride 1,000 ML 82 / 82 @ 50 mls/hr IVC .Q20H MADELIN Rx#: [id number] Other: Meal NPO - Labs 04/05/17 05:03 04/05/17 05:03 - Attending Attestation For this encounter, I have reviewed the [employer] or PA documentation, treatment plan, and medical decision making; and I have had face to face time with this patient. I reviewed the above assessment and evaluation with the nurse practitioner and agree with the above plan. Patient has similar or same type of abdominal pain symptoms but has a noted mild increase in creatinine level and lactic acidosis. Additionally, the patient's white count has increased to approximately 19, 000. Same tenderness to palpation noted compared to previous exam with no evidence of a mass effect felt. I will go ahead and order for repeat CT scan with oral contrast to determine whether or not the CT scan images has worsened. Addendum; I had an opportunity reviewed the patient's CAT scan from yesterday with radiology. There is concern about a possible small bowel origin related to the patient's perforation. There was a concerning area near the transverse colon appears to be mid jejunal segment of the bowel which may be the origin of the perforation. CT scan will be helpful to determine if the overall amount of fluid within the abdomen has increased compared to yesterday. Will follow very closely.
[2017-04-05] MEDS ORDERED: 0.9 % Sodium Chloride 1,000 ML IVC ONE (09:22)
[2017-04-05] MEDS ORDERED: Acetaminophen IV 1,000 MG/100 ML INFUS..BTL IVPB SCH ×2 (09:45→16:00)
--- NOTE | 2017-04-05 11:15 | Internal Med History&Physical ---
Date of Encounter: 04/05/17 Time of Encounter: 09:00 Internal Medicine - H&P: HPI History of present illness: Mr. Harley is a 66 year old male Past Med Surg Social Fam HX - Past Medical History Medical history: cancer, hyperlipidemia, hypertension, other Psychiatric history: no psych history - Past Surgical History Surgical History: other - Social History Smoking Status: Current some day smoker Smokeless Tobacco Status: No Alcohol use: none Drug use: none - Family History Father Living Status: Hx Family Cancer: Yes (colon) Internal Medicine - H&P: Meds Amlodipine Besylate 10 mg PO DAILY 04/15/16 [History] Atenolol 100 mg PO DAILY 04/15/16 [History] Cholecalciferol (Vitamin D3) [Vitamin D3] 5,000 unit PO DAILY 04/15/16 [History] Fluticasone Propionate Nasal [Flonase] 50 mcg NS BID PRN 04/15/16 [History] Glucosamine Sulfate Dipot Chlr [Glucosamine] 1,000 mg PO BID 04/15/16 [History] Ondansetron [Zofran] 4 mg PO Q8HR PRN #90 tablet 05/14/16 [Rx] Prochlorperazine Maleate [Compazine] 10 mg PO Q8HR PRN #90 tablet 05/14/16 [Rx] OxyCODONE Immed Rel [Roxicodone 5 MG] 5 mg PO DAILY PRN #30 tab 01/07/17 [Rx] Gabapentin [Neurontin] 100 mg PO QAM 02/28/17 [History] Gabapentin [Neurontin] 200 mg PO BID 02/28/17 [History] Capecitabine [Xeloda] 1,500 mg PO BID #112 tablet 03/08/17 [Rx] Lidocaine/Prilocaine CREAM [Emla] 1 gm TP AD PRN 04/04/17 [History] Omeprazole [PriLOSEC] 40 mg PO DAILY 04/04/17 [History] 3 Allergy/AdvReac Type Severity Reaction Status Date / Time lisinopril Allergy Swelling Verified 04/04/17 13:54 of Lip/Tongue/Throat All Systems PM: A 10-system review of systems was performed and is negative for pertinent findings except as documented above in the HPI. - Constitutional Vitals: Temp Pulse Resp BP Pulse Ox 98.2 F 74 20 100/62 95 10/03/17 06:42 04/05/17 06:42 04/05/17 06:42 04/05/17 06:42 04/05/17 06:42 Internal Med - H&P Results - Labs CBC & Chem 7: 04/05/17 05:03 04/05/17 05:03 - Impressions ITS Impressions Chest X-Ray 04/05/17 07:50 IMPRESSION: Stable chest, including bibasilar atelectasis. D/ / Jay Zuniga MD / Jay Zuniga MD Interpreting Provider: Jay Zuniga MD - VTE Documentation of Mechanical Device: Intermittent pneumatic compression device
[2017-04-05] MEDS: 0.9 % Sodium Chloride 1,000 ML IVC SCH ×2 (11:30→20:08)
[2017-04-05] MEDS: *HR* HYDROmorphone 2 MG/ML SYRINGE IVP PRN ×2 (11:58→15:38)
[2017-04-05] MEDS ORDERED: *HR* LORazepam 2 MG/ML VIAL IVP ONE (12:06)
--- NOTE | 2017-04-05 14:33 | Internal Med Progress Note ---
Date of Encounter: 04/05/17 Time of Encounter: 09:00 - Constitutional Vitals: Temp Pulse Resp BP Pulse Ox 97.5 F L 87 30 131/58 94 04/05/17 11:42 04/05/17 11:42 04/05/17 11:42 04/05/17 11:42 04/05/17 11:42 Internal Medicine: Result - Labs CBC & Chem 7: 04/05/17 05:03 04/05/17 05:03 - ABG Interpretation ABG results: PT/INR, D-dimer PT 16.5 Seconds (9.4-12.1) H 04/04/17 16:06 - Impressions Impressions Chest X-Ray 04/05/17 07:50 IMPRESSION: Stable chest, including bibasilar atelectasis. D/ / Jay Zuniga MD / Jay Zuniga MD Interpreting Provider: Jay Zuniga MD Abdomen/Pelvis CT 04/05/17 11:00 IMPRESSION: 1. Stable small amount of free intraperitoneal air, primarily within the anterior abdomen. The CT yesterday raised the possibility of a jejunal perforation, although the jejunum appears intact on today's study, and this is not felt to be the source of perforation. Given that the patient's cancer involves a long segment of the transverse colon which appears irregular and air-filled, a microperforation arising from the transverse colon is suspected, although not definitive. No extraluminal oral contrast. 2. Retention of IV contrast within the kidneys administered during yesterday's CT. Findings are concerning for contrast induced nephropathy. Correlation with the patient's renal function tests is suggested. 3. Large amount of peritoneal carcinomatosis. Small abdominal and pelvic free fluid. Results of this examination were verbally communicated to Dr. Faye at 12:03 p.m. on 04/05/2017. RECOMMENDATIONS: Consider a follow-up CT in 12-24 hours in order to assess for extraluminal contrast as the oral contrast transits through the large bowel. D/ / 04/05/2017 12:14:31 Mulugeta Grande MD / [facility] Interpreting Provider: Mulugeta Grande MD - VTE Documentation of Mechanical Device: Intermittent pneumatic compression device Consult Discharge Plan - Plan Referrals: Dean Landeros MD [Primary Care Provider] -
--- NOTE | 2017-04-05 14:36 | Internal Med Progress Note ---
<Viktoria Jung - Last Filed: 04/05/17 14:47> Date of Encounter: 04/05/17 Time of Encounter: 09:30 - Assessment and plan (1) Free intraperitoneal air Current Visit: Yes Status: Acute Assessment and plan: Patient has no significant changes in his abdominal pain from yesterday. Surgery has recommended conservative treatment at this time. Depending on repeat CT scan and oncology evaluation, surgical intervention may be an option later in the course of this hospitalization. -Follow-up CT abdomen and pelvis with oral contrast only -continue fluid resuscitation -discomfort management-surgery added Ofirmev. -Bowel rest except medications for CT scan and ice chips Q shift. -Continue IV Zosyn and Flagyl -Follow surgery and oncology recommendations. (2) Acute kidney injury Current Visit: Yes Status: Acute Assessment and plan: Patient with an acute kidney injury and creatinine of 163. We will resuscitate the patient with fluids as this is likely related to decreased by mouth and hydration. (3) Lactic acidosis Current Visit: Yes Status: Acute Assessment and plan: Patient's lactic acid 9.8 this morning. -Patient was given a bolus of fluids and started on 25 mils per hour maintenance fluid. -Continue broad-spectrum IV antibiotic therapy. -CODE STATUS was updated to DNR CC. (4) Abdominal pain Current Visit: Yes Status: Acute Assessment and plan: Patient not asking for IV narcotic pain medication. Surgery has added IV Tylenol to his regimen. We will continue to urge patient to take pain medication. Qualifiers: Abdominal location: generalized Qualified Code(s): R10.84 - Generalized abdominal pain (5) Colon cancer Current Visit: Yes Status: Chronic Assessment and plan: Patient's CT findings consistent with progression of his colon cancer. Patient was not a candidate for surgery at [facility]. Patient received his last dose of chemotherapy here by Dr. Gordon 2 weeks ago. -Palliative was consulted. We will follow their recommendations. Qualifiers: Colon location: transverse Qualified Code(s): C18.4 - Malignant neoplasm of transverse colon - Subjective Interval history: Jah is a 66-year-old male with stage IV colon cancer who presented to the emergency department with a one-week history of increasing abdominal pain, fever, nausea, and vomiting. He was admitted to the hospital after being found with increased free peritoneal air and a suspected perforated viscus. Mr. Harley was resting this morning and felt that his abdominal pain was not improved, however, he felt there was no point in trying to treat it if the medications were not working. He was upset by the recent news that his cancer had progressed. He was emotional and distraught. Upon discussion of CODE STATUS, he decided he would like to be DNR comfort care. - Constitutional Vitals: Temp Pulse Resp BP Pulse Ox 97.5 F L 87 30 131/58 94 04/05/17 11:42 04/05/17 11:42 04/05/17 11:42 04/05/17 11:42 04/05/17 11:42 General appearance: Present: cooperative, A&O X 3, answers questions appropriately - Head Head exam: Present: atraumatic, normocephalic - Respiratory Respiratory exam: Present: CTAB. Absent: accessory muscle use, rales, rhonchi, wheezes - Cardiovascular Cardiovascular exam: Present: RRR, +S1, +S2. Absent: diastolic murmur, gallop, rubs, systolic murmur - GI/Abdominal GI/Abdominal exam: Present: distended, firm, tenderness (Diffusely). Absent: guarding, rebound - Extremities Exam Extremities exam: Present: warm, radial pulses palpable and symmetrical. Absent : calf tenderness, cyanotic, pedal edema Internal Medicine: Result - Labs CBC & Chem 7: 04/05/17 05:03 04/05/17 05:03 - ABG Interpretation ABG results: PT/INR, D-dimer PT 16.5 Seconds (9.4-12.1) H 04/04/17 16:06 - Impressions Impressions Chest X-Ray 04/05/17 07:50 IMPRESSION: Stable chest, including bibasilar atelectasis. D/ / Jay Zuniga MD / Jay Zuniga MD Interpreting Provider: Jay Zuniga MD Abdomen/Pelvis CT 04/05/17 11:00 IMPRESSION: 1. Stable small amount of free intraperitoneal air, primarily within the anterior abdomen. The CT yesterday raised the possibility of a jejunal perforation, although the jejunum appears intact on today's study, and this is not felt to be the source of perforation. Given that the patient's cancer involves a long segment of the transverse colon which appears irregular and air-filled, a microperforation arising from the transverse colon is suspected, although not definitive. No extraluminal oral contrast. 2. Retention of IV contrast within the kidneys administered during yesterday's CT. Findings are concerning for contrast induced nephropathy. Correlation with the patient's renal function tests is suggested. 3. Large amount of peritoneal carcinomatosis. Small abdominal and pelvic free fluid. Results of this examination were verbally communicated to Dr. Faye at 12:03 p.m. on 04/05/2017. RECOMMENDATIONS: Consider a follow-up CT in 12-24 hours in order to assess for extraluminal contrast as the oral contrast transits through the large bowel. D/ / 04/05/2017 12:14:31 Mulugeta Grande MD / [facility] Interpreting Provider: Mulugeta Grande MD - VTE Documentation of Mechanical Device: Intermittent pneumatic compression device Consult Discharge Plan - Plan Referrals: Dean Landeros MD [Primary Care Provider] - 04/22/17 11:00 am <Stanley Edwards - Last Filed: 04/05/17 15:58> Date of Encounter: 04/05/17 - Constitutional Vitals: Temp Pulse Resp BP Pulse Ox 97.5 F L 87 30 131/58 94 04/05/17 11:42 04/05/17 11:42 04/05/17 11:42 04/05/17 11:42 04/05/17 11:42 Internal Medicine: Result - Labs CBC & Chem 7: 04/05/17 05:03 04/05/17 05:03 - ABG Interpretation ABG results: PT/INR, D-dimer PT 16.5 Seconds (9.4-12.1) H 04/04/17 16:06 - Impressions Impressions Chest X-Ray 04/05/17 07:50 IMPRESSION: Stable chest, including bibasilar atelectasis. D/ / Jay Zuniga MD / Jay Zuniga MD Interpreting Provider: Jay Zuniga MD Echocardiogram 04/05/17 09:24 Impressions: LVEF 65%. The basal inferior wall is hypokinetic. All other myocardial segments demonstrate normal contractility. Mild concentric left ventricular hypertrophy. Moderate left ventricular diastolic dysfunction. Normal right ventricular size and function. Mildly dilated left atrium. There is mitral regurgitation, which is likely moderate in severity but is not well evaluated on this study. A AMOS could be considered to further evaluate if clinically indicated. Mild pulmonary hypertension. Estimated RVSP = 44 mmHg. Left Ventricular Wall Motion: Rest Echo Findings The basal inferior wall was hypokinetic. All other wall segments showed normal motion. Findings: Study Quality * Suboptimal echo windows. ECG Findings * Normal sinus rhythm. Left Ventricle * LVEF 65%. The basal inferior wall is hypokinetic. All other myocardial segments demonstrate normal contractility. * Normal LV chamber size. * Mild concentric left ventricular hypertrophy. * Moderate left ventricular diastolic dysfunction. Right Ventricle * Normal right ventricular size and function. Left Atrium * Mildly dilated left atrium. Right Atrium * Normal right atrial size. Aorta * Normally sized aortic root. Pericardium * There is no pericardial effusion present. IVC * The IVC is not well evaluated. Aortic Valve * Aortic valve not well visualized. * No aortic stenosis. * Trace aortic regurgitation. Mitral Valve * Normal mitral valve structure. * No mitral stenosis. * There is mitral regurgitation, which is likely moderate in severity but is not well evaluated on this study. A AMOS could be considered to further evaluate if clinically indicated. Tricuspid Valve * Normal tricuspid valve structure. * No tricuspid stenosis. * Trace tricuspid regurgitation. * Mild pulmonary hypertension. Estimated RVSP = 44 mmHg. Pulmonic Valve * Pulmonic valve not well visualized. * No pulmonic stenosis. * Trace pulmonic regurgitation. Abdomen/Pelvis CT 04/05/17 11:00 IMPRESSION: 1. Stable small amount of free intraperitoneal air, primarily within the anterior abdomen. The CT yesterday raised the possibility of a jejunal perforation, although the jejunum appears intact on today's study, and this is not felt to be the source of perforation. Given that the patient's cancer involves a long segment of the transverse colon which appears irregular and air-filled, a microperforation arising from the transverse colon is suspected, although not definitive. No extraluminal oral contrast. 2. Retention of IV contrast within the kidneys, which was administered during yesterday's CT. Findings are concerning for contrast induced nephropathy. Correlation with the patient's renal function tests is suggested. 3. Large amount of peritoneal carcinomatosis. Small abdominal and pelvic free fluid. Results of this examination were verbally communicated to Dr. Faye at 12:03 p.m. on 04/05/2017. RECOMMENDATIONS: Consider a follow-up CT in 12-24 hours in order to assess for extraluminal contrast as the oral contrast transits through the large bowel. D/ / 04/05/2017 12:14:31 Mulugeta Grande MD / [facility] Interpreting Provider: Mulugeta Grande MD - Attending Attestation Patient has hypoxia, sepsis , lactic acidosis, suspected peritonitis and perforated viscus, NGOC and Contrast induced nephropathy. see my event note done today for details.
[2017-04-05] MEDS ORDERED: Haloperidol Lactate 5 MG/ML VIAL IVP ONE (16:20)
[2017-04-05] MEDS ORDERED: Haloperidol Lactate 5 MG/ML VIAL ONE (16:21)
--- NOTE | 2017-04-05 16:32 | Oncology Inp Consult Note ---
Date of Encounter: 04/05/17 Time of Encounter: 12:00 Assessment and Plan (1) Colon cancer Status: Chronic Assessment and plan: Patient with metastatic colon cancer, primary not resected possible microperforation of the tumor mass, imaging findings reviewed. He is in mild- moderate distress, blood pressure has improved. Agree with continuing IV antibiotics with leukocytosis, no surgical intervention at this time due to diffuse peritoneal carcinomatosis. CT imaging has shown stable findings on re- imaging. Continue supportive measures for now. Imaging/markers show progression. He had poorly tolerated prior chemotherapy treatments. (xeloda.avastin currently) .Family did not want to talk to palliative care medicine. Further Rx with palliative irinotecan chemotherapy which he has not received would be difficult as he did not tolerate combination cytotoxic Rx well. Nephrology evaluation for renal insifficiency and fluid balance Patient wants to remain a DNR comfort care at arrest and does not want ventilatory support Critical condition noted and plan reviewed with patient and family bedside Qualifiers: Colon location: transverse Qualified Code(s): C18.4 - Malignant neoplasm of transverse colon - Data of Consult Requesting Physician: Stanley Edwards MD Primary Care Provider: Dean Landeros MD - Consult Narrative Reason for consult: colon cancer History of present illness: Mr. Harley is a 66 year old male with hx hypertension, hypercholesterolemia history of colon cancer status post biopsy in April 2016, circumferential mass nonobstructing and transverse colon with peritoneal nodules, periportal lymph nodes, was seen at [facility] felt not to be resectable patient started palliative chemotherapy with the FOLFOX which she tolerated poorly due to neuropathy after few cycles, started treatment with Xeloda and Avastin per [facility] recommendations. Patient has had prior CT scans which showed overall stable tumor mass with slight increase in peritoneal carcinomatosis. His CEA had increased to 50s and a change in treatment was suggested at that point. He has been sick with the nausea, one episode of vomiting abdominal discomfort for over a week, he also developed worsening shortness of breath and was evaluated in the ER hospitalized with findings are from bowel perforation. Patient has had 2 imaging studies which shows a transverse colon mass, worsening of peritoneal disease, possible perforation from transverse colon mass through the bowels. On exam today patient is in mild to moderate respiratory distress. He was noted to be hypotensive blood pressure has improved. Patient is needing oxygen by nasal cannula and saturation are at 80s. Ativan has helped breathing, on pain medications-dilaudid, abx. He has occasional disorientation but answers questions appropriately. Surgery has been consulted, conservative management for bowel perforation has been recommended. Past Med Surg Social Fam HX - Past Medical History Medical history: cancer, hyperlipidemia, hypertension, other Psychiatric history: no psych history - Past Surgical History Surgical History: other - Social History Smoking Status: Current some day smoker Smokeless Tobacco Status: No Alcohol use: none Drug use: none - Family History Father Living Status: Hx Family Cancer: Yes (colon) Medications and Allergies Amlodipine Besylate 10 mg PO DAILY 04/15/16 [History] Atenolol 100 mg PO DAILY 04/15/16 [History] Cholecalciferol (Vitamin D3) [Vitamin D3] 5,000 unit PO DAILY 04/15/16 [History] Fluticasone Propionate Nasal [Flonase] 50 mcg NS BID PRN 04/15/16 [History] Glucosamine Sulfate Dipot Chlr [Glucosamine] 1,000 mg PO BID 04/15/16 [History] Ondansetron [Zofran] 4 mg PO Q8HR PRN #90 tablet 05/14/16 [Rx] Prochlorperazine Maleate [Compazine] 10 mg PO Q8HR PRN #90 tablet 05/14/16 [Rx] OxyCODONE Immed Rel [Roxicodone 5 MG] 5 mg PO DAILY PRN #30 tab 01/07/17 [Rx] Gabapentin [Neurontin] 100 mg PO QAM 02/28/17 [History] Gabapentin [Neurontin] 200 mg PO BID 02/28/17 [History] Capecitabine [Xeloda] 1,500 mg PO BID #112 tablet 03/08/17 [Rx] Lidocaine/Prilocaine CREAM [Emla] 1 gm TP AD PRN 04/04/17 [History] Omeprazole [PriLOSEC] 40 mg PO DAILY 04/04/17 [History] 3 Allergy/AdvReac Type Severity Reaction Status Date / Time lisinopril Allergy Swelling Verified 04/04/17 13:54 of Lip/Tongue/Throat Constitutional: Present: lethargy Cardiovascular: Present: orthopnea Gastrointestinal: Present: abdominal pain Oncology - Exam - Constitutional Vitals: Temp Pulse Resp BP Pulse Ox 97.5 F L 87 30 131/58 94 04/05/17 11:42 04/05/17 11:42 04/05/17 11:42 04/05/17 11:42 04/05/17 11:42 General appearance: mild distress - Head Head exam: Present: atraumatic, normal inspection - Eye Eye exam: Present: sclera anicteric - ENT ENT exam: Present: mucous membranes moist - Respiratory Respiratory exam: Present: accessory muscle use, CTAB - Cardiovascular Cardiovascular exam: Present: +S1, +S2 - GI/Abdominal GI/Abdominal exam: Present: distended, soft Additional comments: BS + - Extremities Exam Extremities exam: Present: normal inspection - Neurological Exam Neurological exam: Present: alert, CN II-XII intact, oriented X3 Consult Discharge Plan - Plan Referrals: Dean Landeros MD [Primary Care Provider] - 04/22/17 11:00 am
[2017-04-05 17:52] LABS: VBG HCO3 8 mEq/L (21-27); VBG PCO2 24 mmHg (41-51); VBG PH 7.11 pH Units (7.32-7.42); VBG PO2 152 mmHg (25-50)
[2017-04-05] MEDS ORDERED: Haloperidol Lactate 5 MG/ML VIAL IM PRN (19:58)
[2017-04-05] MEDS: Acetaminophen IV 1,000 MG/100 ML INFUS..BTL IVPB SCH (23:14)
[2017-04-06] MEDS: 0.9 % Sodium Chloride 1,000 ML IVC SCH ×2 (04:13→12:01)
[2017-04-06 04:26] LABS: Hemoglobin 8.9 g/dL (12.9-16.9); Mean Corpuscular HGB Conc 30.7 g/dL (31.6-35.5); Mean Corpuscular Hemoglobin 26.3 pg (28.0-33.3); Mean Corpuscular Volume 85.5 fL (83.0-100.0); Mean Platelet Volume 10.4 fL (9.4-12.4); Nucleated Red Blood Cells 0.1 /100 WBC (0); Platelet Count 348 K/mcL (140-400); Red Blood Count 3.39 M/mcL (4.19-5.50); Red Cell Distribution Width 23.8 % (11.5-14.5)
[2017-04-06 04:38] LABS: BUN/Creatinine Ratio 37 (6-26); Calcium 8.7 mg/dL (8.6-10.8); Carbon Dioxide 13 mEq/L (19-29); Chloride 107 mEq/L (98-109); Glucose 74 mg/dL (70-99); Osmolality,Calculated 292 (280-300); Potassium 4.3 mEq/L (3.5-4.5); Sodium 135 mEq/L (136-145); eGFR For African Americans > 60 (> 60); eGFR For Non-African Americans 54 (> 60)
[2017-04-06 04:40] LABS: Blood Urea Nitrogen 49 mg/dL (8-26)
[2017-04-06 04:54] LABS: Anisocytosis 2+ (Not Present); Monocytes # 0.8 K/mcL (0.0-1.3); Neutrophils # 17.5 K/mcL (1.6-8.9); Platelet Estimate Normal (Normal)
[2017-04-06 04:55] LABS: Macrocytosis Present (Not Present); Microcytosis Present (Not Present)
[2017-04-06] MEDS: Acetaminophen IV 1,000 MG/100 ML INFUS..BTL IVPB SCH ×4 (05:53→23:12)
[2017-04-06] MEDS: *HR* Heparin 5,000 UNIT/ML VIAL SQ SCH ×2 (05:55→19:02)
--- NOTE | 2017-04-06 08:01 | General Surgery Progress Note ---
Date of Encounter: 04/06/17 Time of Encounter: 07:59 - Assessment and Plan (1) Free intraperitoneal air Current Visit: Yes Status: Acute I reviewed the patient's white count with the patient and family. White count is probably 20,000 seems to have plateaued. These only been taking Tylenol since he had confusion and some mental status changes with the Dilaudid that was given yesterday evening. I am hopeful that the antibody except probably started to have an effect and has improved his overall abdominal pain symptoms. I would definitely recommend another 24 hours of IV antibiotics and if he continues with a decreased white count tomorrow then we can consider switching him to oral antibiotics. We will consider advancing his diet to clear liquids ( will need to limit his oral intake) later on this morning or afternoon. (2) Acute kidney injury Current Visit: Yes Status: Acute Any level has decreased 1.32 from 1.63 yesterday. Lactic acidosis has improved from a value of 9.6 yesterday to 6.1 today. Continue with current management. Subjective Patient reports: other (Patient states the pain has decreased. No nausea or vomiting. No BM but positive flatus) Objective Vital Signs - Last 8 Hours Temp Pulse Resp BP Pulse Ox 04/06/17 07:00 97.6 F 66 26 129/71 95 04/06/17 05:18 97.8 F 04/06/17 03:45 67 24 116/65 92 Intake and Output 04/05/17 04/05/17 04/06/17 15:59 23:59 07:59 Intake Total 1282 / 1282 1200 / 1200 1000 / 1000 Output Total 1800 / 1800 975 / 975 Balance -518 / -518 1200 / 1200 25 / 25 Intake: IV Fluids 1282 / 1282 1200 / 1200 1000 / 1000 0.9 % Sodium Chloride 1,000 ML 1082 / 1082 1000 / 1000 1000 / 1000 @ 125 mls/hr IVC .Q8H [facility] Rx#: [id number] Ofirmev 1,000 mg/100 ml 1,000 100 / 100 100 / 100 mg In 100 ml @ 400 mls/hr IVPB Q6H [facility] Rx#:[id number] Zosyn 3.375 GM In Dextrose 5% ( 100 / 100 100 / 100 Minibag+) 100 ML 100 ML @ 25 mls/hr IVPB Q8HR [facility] Rx#: [id number] Oral 0 / 0 0 / 0 Output: Urine 900 / 900 425 / 425 Urethral (Nayak) 900 / 900 Catheter 900 / 900 550 / 550 Other: Meal NPO Weight 89.7 kg 89.8 kg Blood Glucose* 63 63 74 Patient Weight 04/06/17 23:59 Weight 89.8 kg - General physical appearance no distress - Abdomen Abdomen: Present: soft, tender (Mild tenderness to moderate palpation in the upper abdominal region. Soft.) - Labs 04/06/17 04:05 04/06/17 04:05 Diabetes panel 04/06/17 Range/Units 04:05 Sodium 135 L (136-145) mEq/L Potassium 4.3 (3.5-4.5) mEq/L Chloride 107 (98-109) mEq/L Carbon Dioxide 13 L (19-29) mEq/L BUN 49 H D (8-26) mg/dL Creatinine 1.32 H (0.72-1.25) mg/dL Glucose 74 (70-99) mg/dL Calcium 8.7 (8.6-10.8) mg/dL Calcium panel 04/06/17 Range/Units 04:05 Calcium 8.7 (8.6-10.8) mg/dL Pituitary panel 04/06/17 Range/Units 04:05 Sodium 135 L (136-145) mEq/L Potassium 4.3 (3.5-4.5) mEq/L Chloride 107 (98-109) mEq/L Carbon Dioxide 13 L (19-29) mEq/L BUN 49 H D (8-26) mg/dL Creatinine 1.32 H (0.72-1.25) mg/dL Glucose 74 (70-99) mg/dL Calcium 8.7 (8.6-10.8) mg/dL Adrenal panel 04/06/17 Range/Units 04:05 Sodium 135 L (136-145) mEq/L Potassium 4.3 (3.5-4.5) mEq/L Chloride 107 (98-109) mEq/L Carbon Dioxide 13 L (19-29) mEq/L BUN 49 H D (8-26) mg/dL Creatinine 1.32 H (0.72-1.25) mg/dL Glucose 74 (70-99) mg/dL Calcium 8.7 (8.6-10.8) mg/dL - VTE Documentation of Mechanical Device: Intermittent pneumatic compression device Consult Discharge Plan - Plan Referrals: Dean Landeros MD [Primary Care Provider] - 04/22/17 11:00 am
[2017-04-06] MEDS: Piperacillin/Tazobactam 3.375 GM in D5% in Water (Mini-Bag+) 100 ML IVPB SCH ×3 (08:47→23:12)
--- NOTE | 2017-04-06 08:53 | Internal Med Progress Note ---
Date of Encounter: 04/06/17 Time of Encounter: 08:51 - Assessment and plan (1) Acute encephalopathy Current Visit: Yes Status: Acute Assessment and plan: due to medications- Dilaudid and Ativan vs underlying infection; continues to have visual hallucinations and agitation; will use PRN IV Haldol and supportive care. Fall precautions. (2) Perforated viscus Current Visit: Yes Status: Acute Assessment and plan: Surgery followup appreciated. Abdominal pain improving; no further doses of narcotics at this time due to current encephalopathy after receiving Dilaudid yesterday. Continue IV antibiotics and f/up blood cultures. Leukocytosis stable with improved bandemia. Improving lactic acidosis. Continue gentle IV hydration and clear liquid diet per Surgery; CT abdomen/pelvis shows intraperitoneal free air, with likely focus in transverse colon, which is the primary site of his unresected colon cancer. (3) Sepsis Current Visit: Yes Status: Acute Assessment and plan: Patient presented with leukocytosis/bandemia, fever, tachycardia, tachypnea, lactic acidosis with likely intraabdominal source of infection. Continue broad spectrum IV antibiotics- Zosyn and f/up blood cultures. Lactic acid and WBC count improving; Qualifiers: Sepsis type: sepsis due to unspecified organism Qualified Code(s): A41.9 - Sepsis, unspecified organism (4) Acute kidney injury Current Visit: Yes Status: Acute Assessment and plan: Improving serum creatinine; dehydration along with contrast induced nephropathy ; monitor closely, gentle IV hydration. Urine output noted to be appropriate- nonoliguric. (5) Lactic acidosis Current Visit: Yes Status: Acute Assessment and plan: could be secondary to sepsis or bowel ischemia? Currently improving. Surgery following. (6) Colon cancer Current Visit: Yes Status: Chronic Assessment and plan: H/o- colon cancer- unresectable due to peritoneal carcinomatosis; on chemotherapy as outpatient, not tolerating well per Oncology notes. Oncology consult appreciated, recommend Palliative care; family currently not agreeable to this, will continue to follow. Qualifiers: Colon location: transverse Qualified Code(s): C18.4 - Malignant neoplasm of transverse colon (7) Acute respiratory failure with hypoxia Current Visit: Yes Status: Acute Assessment and plan: likely related to sepsis and abdominal pain and atelectasis. Continue supplemental O2, currently requiring up to 5L/min via NC. Monitor for volume overload as he developed wheezing- cardiac asthma this afternoon; supportive care. - Subjective Interval history: Noted to be somewhat confused with intermittent visual hallucinations; but able to participate in conversation. History obtained from his at bedside. Reports improving abdominal pain and fever; no vomiting or diarrhea; - Constitutional Vitals: Temp Pulse Resp BP Pulse Ox 97.6 F 66 26 129/71 95 04/06/17 07:00 04/06/17 07:00 04/06/17 07:00 04/06/17 07:00 04/06/17 07:00 General appearance: Present: A&O X 2, mild distress, answers questions appropriately - Respiratory Respiratory exam: Present: CTAB. Absent: accessory muscle use, rales, rhonchi, wheezes - Cardiovascular Cardiovascular exam: Present: RRR, +S1, +S2. Absent: diastolic murmur, gallop, rubs, systolic murmur - GI/Abdominal GI/Abdominal exam: Present: distended (dull to percussion), normal bowel sounds , soft (nontender), no peritoneal signs. Absent: tenderness - Extremities Exam Extremities exam: Present: full ROM, warm, radial pulses palpable and symmetrical. Absent: calf tenderness, cyanotic, pedal edema - Neurological Exam Neurological exam: Present: altered (visual hallucinations+), CN II-XII intact, oriented X3, no focal deficits. Absent: pronater drift, facial droop, speech deficit - Skin Skin exam: Present: dry, intact Internal Medicine: Result - Labs CBC & Chem 7: 04/06/17 04:05 04/06/17 04:05 Labs: Short CBC 04/06/17 Range/Units 04:05 WBC 20.3 H (4.3-11.1) K/mcL Hgb 8.9 L (12.9-16.9) g/dL Hct 29.0 L (37.5-50.1) % Plt Count 348 (140-400) K/mcL Neutrophils # 17.5 H (1.6-8.9) K/mcL BMP 04/06/17 04:05 Sodium 135 L Potassium 4.3 Chloride 107 Carbon Dioxide 13 L BUN 49 H D Creatinine 1.32 H Glucose 74 Calcium 8.7 - ABG Interpretation ABG results: PT/INR, D-dimer PT 16.5 Seconds (9.4-12.1) H 04/04/17 16:06 - Impressions Impressions Echocardiogram 04/05/17 09:24 Impressions: LVEF 65%. The basal inferior wall is hypokinetic. All other myocardial segments demonstrate normal contractility. Mild concentric left ventricular hypertrophy. Moderate left ventricular diastolic dysfunction. Normal right ventricular size and function. Mildly dilated left atrium. There is mitral regurgitation, which is likely moderate in severity but is not well evaluated on this study. A AMOS could be considered to further evaluate if clinically indicated. Mild pulmonary hypertension. Estimated RVSP = 44 mmHg. Left Ventricular Wall Motion: Rest Echo Findings The basal inferior wall was hypokinetic. All other wall segments showed normal motion. Findings: Study Quality * Suboptimal echo windows. ECG Findings * Normal sinus rhythm. Left Ventricle * LVEF 65%. The basal inferior wall is hypokinetic. All other myocardial segments demonstrate normal contractility. * Normal LV chamber size. * Mild concentric left ventricular hypertrophy. * Moderate left ventricular diastolic dysfunction. Right Ventricle * Normal right ventricular size and function. Left Atrium * Mildly dilated left atrium. Right Atrium * Normal right atrial size. Aorta * Normally sized aortic root. Pericardium * There is no pericardial effusion present. IVC * The IVC is not well evaluated. Aortic Valve * Aortic valve not well visualized. * No aortic stenosis. * Trace aortic regurgitation. Mitral Valve * Normal mitral valve structure. * No mitral stenosis. * There is mitral regurgitation, which is likely moderate in severity but is not well evaluated on this study. A AMOS could be considered to further evaluate if clinically indicated. Tricuspid Valve * Normal tricuspid valve structure. * No tricuspid stenosis. * Trace tricuspid regurgitation. * Mild pulmonary hypertension. Estimated RVSP = 44 mmHg. Pulmonic Valve * Pulmonic valve not well visualized. * No pulmonic stenosis. * Trace pulmonic regurgitation. Abdomen/Pelvis CT 04/05/17 11:00 IMPRESSION: 1. Stable small amount of free intraperitoneal air, primarily within the anterior abdomen. The CT yesterday raised the possibility of a jejunal perforation, although the jejunum appears intact on today's study, and this is not felt to be the source of perforation. Given that the patient's cancer involves a long segment of the transverse colon which appears irregular and air-filled, a microperforation arising from the transverse colon is suspected, although not definitive. No extraluminal oral contrast. 2. Retention of IV contrast within the kidneys, which was administered during yesterday's CT. Findings are concerning for contrast induced nephropathy. Correlation with the patient's renal function tests is suggested. 3. Large amount of peritoneal carcinomatosis. Small abdominal and pelvic free fluid. Results of this examination were verbally communicated to Dr. Faye at 12:03 p.m. on 04/05/2017. RECOMMENDATIONS: Consider a follow-up CT in 12-24 hours in order to assess for extraluminal contrast as the oral contrast transits through the large bowel. D/ / 04/05/2017 12:14:31 Mulugeta Grande MD / [facility] Interpreting Provider: Mulugeta Grande MD - VTE Documentation of Mechanical Device: Intermittent pneumatic compression device Consult Discharge Plan - Plan Referrals: Dean Landeros MD [Primary Care Provider] - 04/22/17 11:00 am
[2017-04-06] MEDS: Albuterol 2.5 MG/3 ML NEBULIZER IH PRN ×2 (11:12→20:44)
[2017-04-06] MEDS ORDERED: Haloperidol Lactate 5 MG/ML VIAL IVP ONE (14:10)
[2017-04-06] MEDS ORDERED: Haloperidol Lactate 5 MG/ML VIAL ONE (14:11)
[2017-04-06] MEDS ORDERED: Ziprasidone injection 20 MG/ML VIAL IM ONE (17:38)
[2017-04-06] MEDS ORDERED: *HR* OxyCODONE/APAP 5/325 TABLET PO PRN (20:40)
[2017-04-06 20:43] LABS: ABG Base Excess -7 mEq/L (-2 to 3); ABG HCO3 17 mEq/L (21-27); ABG Oxygen Saturation 95 % (95-98); ABG PCO2 27 mmHg (35-45); ABG PH 7.41 pH Units (7.32-7.45); ABG PO2 75 mmHg (85-104); ABG TCO2 18 mEq/L (20-26)
[2017-04-06] MEDS: Haloperidol Lactate 5 MG/ML VIAL IVP PRN (21:49)
[2017-04-06] MEDS: Dexmedetomidine HCl 400 MCG/100 ML MLS IVC SCH (22:31)
[2017-04-07] MEDS: Haloperidol Lactate 5 MG/ML VIAL IVP PRN ×3 (01:30→22:28)
[2017-04-07] MEDS: Ondansetron 4 MG/2 ML VIAL IVP PRN (01:49)
[2017-04-07] MEDS: Albuterol 2.5 MG/3 ML NEBULIZER IH PRN (01:50)
--- NOTE | 2017-04-07 02:40 | Event Note ---
Date of Encounter: 04/07/17 Time of Encounter: 02:35 Pt became very agitative last night, so he was transferred to ICU for close monitoring and start him on Precedex gtt. When I examined him last night at 9.00 PM he was alert, awake and Oriented to self, confused , less agitated. So started him on IV Haldol PRN. Talked to pt's family at bed side and explained to them about current care. Later he became more agitated, placed him on Precedex gtt and continued Haldol PRN. Also placed him behavioral restrains since he became more combative. Cont close monitoring for now. Checked his ABG - which was normal. His delirium could be due to possible mets in the brain too, will get a CT of Head in AM as prelim work up.
[2017-04-07] MEDS: Dexmedetomidine HCl 400 MCG/100 ML MLS IVC SCH ×3 (02:45→22:13)
[2017-04-07 04:41] LABS: Basophils % 0.1 %; Hematocrit 26.3 % (37.5-50.1); Hemoglobin 8.5 g/dL (12.9-16.9); Immature Granulocytes % 1.3 % (0-4); Immature Platelets 3.6 % (1.1-6.1); Lymphocytes # 0.5 K/mcL (0.6-4.6); Lymphocytes % 3.8 %; Mean Corpuscular HGB Conc 32.3 g/dL (31.6-35.5); Mean Corpuscular Hemoglobin 26.3 pg (28.0-33.3); Mean Corpuscular Volume 81.4 fL (83.0-100.0); Mean Platelet Volume 9.3 fL (9.4-12.4); Monocytes # 1.4 K/mcL (0.0-1.3); Monocytes % 10.4 %; Neutrophils # 11.2 K/mcL (1.6-8.9); Platelet Count 297 K/mcL (140-400); Red Blood Count 3.23 M/mcL (4.19-5.50); Red Cell Distribution Width 23.7 % (11.5-14.5); Segmented Neutrophils % 84.4 %
[2017-04-07 04:51] LABS: BUN/Creatinine Ratio 45 (6-26); Blood Urea Nitrogen 41 mg/dL (8-26); Calcium 8.9 mg/dL (8.6-10.8); Carbon Dioxide 19 mEq/L (19-29); Chloride 115 mEq/L (98-109); Glucose 118 mg/dL (70-99); Osmolality,Calculated 307 (280-300); eGFR For African Americans > 60 (> 60); eGFR For Non-African Americans > 60 (> 60)
[2017-04-07 04:53] LABS: Sodium 143 mEq/L (136-145)
[2017-04-07] MEDS: *HR* Heparin 5,000 UNIT/ML VIAL SQ SCH ×2 (05:12→17:39)
[2017-04-07] MEDS: Acetaminophen IV 1,000 MG/100 ML INFUS..BTL IVPB SCH ×2 (05:12→12:38)
[2017-04-07] MEDS: 0.9 % Sodium Chloride 1,000 ML IVC SCH (05:12)
[2017-04-07 05:33] LABS: Anisocytosis 2+ (Not Present); Burr Cells 1+ (Not Present); Poikilocytosis 1+ (Not Present)
[2017-04-07 05:34] LABS: Platelet Clumps Few (Not Present); Toxic Granulation Present (Not Present)
[2017-04-07 05:35] LABS: Microcytosis Present (Not Present)
--- NOTE | 2017-04-07 09:01 | Internal Med Progress Note ---
Date of Encounter: 04/07/17 Time of Encounter: 08:40 - Assessment and plan (1) Acute encephalopathy Current Visit: Yes Status: Acute Assessment and plan: due to medications- Dilaudid and Ativan vs underlying infection vs brain mets; had to be transferred to ICU last night for IV preceded strep due to worsening agitation and aggression. Improving slowly as the day progresses. Check CT head. Sepsis resolved. will use PRN IV Haldol and supportive care. Fall precautions. One-on-one sitter for patient safety. He is also on soft wrist restraints for safety. (2) Perforated viscus Current Visit: Yes Status: Acute Assessment and plan: Surgery followup appreciated. Pain control with when necessary Tylenol and cautious low-dose IV morphine. We will avoid Dilaudid and Percocet. Continue IV antibiotics and f/up blood cultures. Improving leukocytosis and lactic acidosis. Continue gentle IV hydration and clear liquid diet per Surgery; tub attendant on board, to start ensure clear. CT abdomen/pelvis shows intraperitoneal free air, with likely focus in transverse colon, which is the primary site of his unresected colon cancer. (3) Sepsis Current Visit: Yes Status: Resolved Assessment and plan: Patient presented with leukocytosis/bandemia, fever, tachycardia, tachypnea, lactic acidosis with likely intraabdominal source of infection. Continue broad spectrum IV antibiotics- Zosyn and f/up blood cultures. Lactic acid and WBC count improving; Qualifiers: Sepsis type: sepsis due to unspecified organism Qualified Code(s): A41.9 - Sepsis, unspecified organism (4) Acute kidney injury Current Visit: Yes Status: Resolved Assessment and plan: Due to sepsis and dehydration. Serum creatinine currently normalized. Continue to monitor closely. (5) Lactic acidosis Current Visit: Yes Status: Acute Assessment and plan: could be secondary to sepsis or bowel ischemia? Currently improving. Surgery following. (6) Colon cancer Current Visit: Yes Status: Chronic Assessment and plan: H/o- colon cancer- unresectable due to peritoneal carcinomatosis; on chemotherapy as outpatient, not tolerating well per Oncology notes. Oncology consult appreciated, recommend Palliative care; family currently not agreeable to this, will continue to follow. Qualifiers: Colon location: transverse Qualified Code(s): C18.4 - Malignant neoplasm of transverse colon (7) Acute respiratory failure with hypoxia Current Visit: Yes Status: Acute Assessment and plan: likely related to sepsis and abdominal pain and atelectasis, volume overload. Continue supplemental O2, currently requiring up to 6L/min via NC. supportive care. - Subjective Interval history: Unable to provide history. Became extremely agitated and combative overnight and was transferred to ICU for initiation of IV Precedex drip, currently running ; Poor appetite, does not seem to be in pain; able to tell me his name is Darrell but does not know where he is. - Constitutional Vitals: Temp Pulse Resp BP Pulse Ox 97.7 F 57 19 102/61 93 04/07/17 07:16 04/07/17 05:00 04/07/17 05:00 04/07/17 05:00 04/07/17 05:00 General appearance: Present: A&O X 1 (on wrist restraints with head low position , still tries to get out of bed). Absent: answers questions appropriately - Respiratory Respiratory exam: Present: CTAB (anterolaterally). Absent: accessory muscle use , rales, rhonchi, wheezes - Cardiovascular Cardiovascular exam: Present: RRR, +S1, +S2. Absent: diastolic murmur, gallop, rubs, systolic murmur - GI/Abdominal GI/Abdominal exam: Present: distended, normal bowel sounds, soft, no peritoneal signs. Absent: tenderness - Neurological Exam Neurological exam: Present: altered, no focal deficits (moves all 4 extremities spontaneously, further exam cannot be completed due to mental status). Absent: pronater drift, facial droop, speech deficit Internal Medicine: Result - Labs CBC & Chem 7: 04/07/17 04:34 04/07/17 04:34 Labs: Short CBC 04/07/17 Range/Units 04:34 WBC 13.3 H (4.3-11.1) K/mcL Hgb 8.5 L (12.9-16.9) g/dL Hct 26.3 L (37.5-50.1) % Plt Count 297 (140-400) K/mcL Neutrophils # 11.2 H (1.6-8.9) K/mcL BMP 04/07/17 04:34 Sodium 143 D Potassium 4.0 Chloride 115 H Carbon Dioxide 19 BUN 41 H Creatinine 0.92 Glucose 118 H Calcium 8.9 - ABG Interpretation ABG results: ABG ABG pH 7.41 pH Units (7.32-7.45) 10/04/17 20:39 ABG pCO2 27 mmHg (35-45) L 04/06/17 20:39 ABG pO2 75 mmHg (85-104) L 04/06/17 20:39 ABG O2 Saturation 95 % (95-98) 04/06/17 20:39 PT/INR, D-dimer PT 16.5 Seconds (9.4-12.1) H 04/04/17 16:06 - VTE Documentation of Mechanical Device: Intermittent pneumatic compression device Consult Discharge Plan - Plan Referrals: Dean Landeros MD [Primary Care Provider] - 04/22/17 11:00 am
[2017-04-07] MEDS: Piperacillin/Tazobactam 3.375 GM in D5% in Water (Mini-Bag+) 100 ML IVPB SCH ×2 (09:53→15:51)
[2017-04-07] MEDS: Ringers Solution, Lactated 1,000 ML IVC SCH ×2 (09:53→22:09)
[2017-04-07] MEDS ORDERED: Acetaminophen 325 MG TABLET PO PRN (13:22)
--- NOTE | 2017-04-07 13:22 | General Surgery Progress Note ---
Date of Encounter: 04/07/17 Time of Encounter: 13:20 - Assessment and Plan (1) Free intraperitoneal air Current Visit: Yes Status: Acute The patient's repeat CT scan yesterday showed no increase in the amount of air and no signs of increasing fluid accumulation suggesting no signs of continuous leak. Continue with current management with IV antibiotics. On clear liquid diet with supplements. Once patient's mental status change/confusion has improved will consider further advancement. (2) Acute kidney injury Current Visit: Yes Status: Acute Creatinine level has continued to decrease down to normal range. Subjective Patient reports: other (Noted that patient was transferred to ICU yesterday evening due to mental status changes. No abdominal pain. No nausea. Noted confusion on today's exam.) Objective Vital Signs - Last 8 Hours Temp Pulse Resp BP Pulse Ox 04/07/17 13:00 97.6 F 50 20 100/60 97 04/07/17 12:00 97.6 F 57 20 99/68 97 04/07/17 11:07 97.6 F 04/07/17 11:00 97.6 F 60 20 110/62 97 04/07/17 08:00 52 04/07/17 07:16 97.7 F Intake and Output 04/06/17 04/07/17 04/07/17 23:59 07:59 15:59 Intake Total 400 / 400 1300 / 1300 100 / 100 Output Total 1100 / 1100 1400 / 1400 400 / 400 Balance -700 / -700 -100 / -100 -300 / -300 Intake: IV Fluids 400 / 400 1300 / 1300 100 / 100 0.9 % Sodium Chloride 1,000 ML 1000 / 1000 @ 75 mls/hr IVC .[id number] [facility] Rx #:[id number] PRECEDEX Premix 400 mcg In 100 100 / 100 100 / 100 ml @ 0.2 MCG/KG/HR 4.49 mls/hr IVC .[id number] [facility] Rx#:[id number] Ofirmev 1,000 mg/100 ml 1,000 300 / 300 100 / 100 mg In 100 ml @ 400 mls/hr IVPB Q6H [facility] Rx#:[id number] Zosyn 3.375 GM In Dextrose 5% ( 100 / 100 100 / 100 Minibag+) 100 ML 100 ML @ 25 mls/hr IVPB Q8HR [facility] Rx#: [id number] Output: Catheter 1100 / 1100 1400 / 1400 400 / 400 Other: Stool Size Smear Weight 89 kg 89 kg Blood Glucose* 107 110 Patient Weight 04/07/17 23:59 Weight 89 kg - General physical appearance no distress - Abdomen Abdomen: Present: bowel sounds present, soft, tender (Minimal tenderness to moderate palpation in the upper abdomen.) - Labs 04/07/17 04:34 04/07/17 04:34 Diabetes panel 04/07/17 Range/Units 04:34 Sodium 143 D (136-145) mEq/L Potassium 4.0 (3.5-4.5) mEq/L Chloride 115 H (98-109) mEq/L Carbon Dioxide 19 (19-29) mEq/L BUN 41 H (8-26) mg/dL Creatinine 0.92 (0.72-1.25) mg/dL Glucose 118 H (70-99) mg/dL Calcium 8.9 (8.6-10.8) mg/dL Calcium panel 04/07/17 Range/Units 04:34 Calcium 8.9 (8.6-10.8) mg/dL Pituitary panel 04/07/17 Range/Units 04:34 Sodium 143 D (136-145) mEq/L Potassium 4.0 (3.5-4.5) mEq/L Chloride 115 H (98-109) mEq/L Carbon Dioxide 19 (19-29) mEq/L BUN 41 H (8-26) mg/dL Creatinine 0.92 (0.72-1.25) mg/dL Glucose 118 H (70-99) mg/dL Calcium 8.9 (8.6-10.8) mg/dL Adrenal panel 04/07/17 Range/Units 04:34 Sodium 143 D (136-145) mEq/L Potassium 4.0 (3.5-4.5) mEq/L Chloride 115 H (98-109) mEq/L Carbon Dioxide 19 (19-29) mEq/L BUN 41 H (8-26) mg/dL Creatinine 0.92 (0.72-1.25) mg/dL Glucose 118 H (70-99) mg/dL Calcium 8.9 (8.6-10.8) mg/dL - VTE Documentation of Mechanical Device: Intermittent pneumatic compression device Consult Discharge Plan - Plan Referrals: Dean Landeros MD [Primary Care Provider] - 04/22/17 11:00 am
[2017-04-07] MEDS ORDERED: Furosemide 40 MG/4 ML VIAL IVP ONE (22:28)
[2017-04-08] MEDS: Piperacillin/Tazobactam 3.375 GM in D5% in Water (Mini-Bag+) 100 ML IVPB SCH ×2 (00:07→07:58)
[2017-04-08 03:06] LABS: Basophils % 0.1 %; Hematocrit 29.6 % (37.5-50.1); Hemoglobin 9.2 g/dL (12.9-16.9); Immature Granulocytes % 1.2 % (0-4); Lymphocytes # 0.6 K/mcL (0.6-4.6); Lymphocytes % 5.6 %; Mean Corpuscular HGB Conc 31.1 g/dL (31.6-35.5); Mean Corpuscular Hemoglobin 25.6 pg (28.0-33.3); Mean Corpuscular Volume 82.5 fL (83.0-100.0); Mean Platelet Volume 10.5 fL (9.4-12.4); Monocytes # 1.7 K/mcL (0.0-1.3); Monocytes % 15.2 %; Neutrophils # 8.7 K/mcL (1.6-8.9); Platelet Count 278 K/mcL (140-400); Red Blood Count 3.59 M/mcL (4.19-5.50); Red Cell Distribution Width 23.6 % (11.5-14.5); Segmented Neutrophils % 77.9 %
[2017-04-08 03:15] LABS: BUN/Creatinine Ratio 36 (6-26); Blood Urea Nitrogen 32 mg/dL (8-26); Calcium 9.1 mg/dL (8.6-10.8); Carbon Dioxide 20 mEq/L (19-29); Chloride 115 mEq/L (98-109); Glucose 103 mg/dL (70-99); Magnesium 1.7 mg/dL (1.6-2.6); Osmolality,Calculated 309 (280-300); Potassium 3.6 mEq/L (3.5-4.5); Sodium 146 mEq/L (136-145); eGFR For African Americans > 60 (> 60); eGFR For Non-African Americans > 60 (> 60)
[2017-04-08 03:42] LABS: Polychromasia 1+ (Not Present)
[2017-04-08 03:43] LABS: Anisocytosis 2+ (Not Present); Large Platelets Present (Not Present); Platelet Estimate Normal (Normal)
[2017-04-08] MEDS: *HR* Heparin 5,000 UNIT/ML VIAL SQ SCH (05:31)
[2017-04-08] MEDS: *HR* Morphine 2 MG/ML SYRINGE IVP PRN ×9 (08:00→21:06)
--- NOTE | 2017-04-08 08:47 | Internal Med Progress Note ---
Date of Encounter: 04/08/17 Time of Encounter: 08:45 - Assessment and plan (1) Acute encephalopathy Current Visit: Yes Status: Acute (2) Perforated viscus Current Visit: Yes Status: Acute (3) Sepsis Current Visit: Yes Status: Resolved Qualifiers: Sepsis type: sepsis due to unspecified organism Qualified Code(s): A41.9 - Sepsis, unspecified organism (4) Acute kidney injury Current Visit: Yes Status: Resolved (5) Lactic acidosis Current Visit: Yes Status: Acute (6) Colon cancer Current Visit: Yes Status: Chronic Qualifiers: Colon location: transverse Qualified Code(s): C18.4 - Malignant neoplasm of transverse colon (7) Acute respiratory failure with hypoxia Current Visit: Yes Status: Acute - Subjective Interval history: Appears better oriented today, able to tell me his name and that he is in a hospital. Reports abdominal pain, had a BM last night per staff toxicologist. Able to tolerate clear liquid diet, improving appetite. Off restraints, was noted to be more confused at night time, but not aggressive or combative. - Constitutional Vitals: Temp Pulse Resp BP Pulse Ox 98.3 F 68 18 110/57 95 04/08/17 07:37 04/08/17 06:00 04/08/17 06:00 04/08/17 06:00 04/08/17 06:00 General appearance: Present: A&O X 2. Absent: answers questions appropriately - Respiratory Respiratory exam: Present: CTAB, wheezes (B/L diffuse wheezing, likely volume overload). Absent: accessory muscle use, rales, rhonchi - Cardiovascular Cardiovascular exam: Present: RRR, +S1, +S2. Absent: diastolic murmur, gallop, rubs, systolic murmur - GI/Abdominal GI/Abdominal exam: Present: distended, normal bowel sounds, soft (tenderness in central and lower abdomen ), no peritoneal signs. Absent: tenderness - Extremities Exam Extremities exam: Present: full ROM, warm, radial pulses palpable and symmetrical. Absent: calf tenderness, cyanotic, pedal edema - Neurological Exam Neurological exam: Present: altered, CN II-XII intact, no focal deficits. Absent: pronater drift, facial droop, speech deficit Internal Medicine: Result - Labs CBC & Chem 7: 04/08/17 02:57 04/08/17 02:57 Labs: Short CBC 04/08/17 Range/Units 02:57 WBC 11.2 H (4.3-11.1) K/mcL Hgb 9.2 L (12.9-16.9) g/dL Hct 29.6 L (37.5-50.1) % Plt Count 278 (140-400) K/mcL Neutrophils # 8.7 (1.6-8.9) K/mcL BMP 04/08/17 02:57 Sodium 146 H Potassium 3.6 Chloride 115 H Carbon Dioxide 20 BUN 32 H Creatinine 0.88 Glucose 103 H Calcium 9.1 - ABG Interpretation ABG results: ABG ABG pH 7.41 pH Units (7.32-7.45) 04/06/17 20:39 ABG pCO2 27 mmHg (35-45) L 04/06/17 20:39 ABG pO2 75 mmHg (85-104) L 04/06/17 20:39 ABG O2 Saturation 95 % (95-98) 04/06/17 20:39 PT/INR, D-dimer PT 16.5 Seconds (9.4-12.1) H 04/04/17 16:06 - VTE Documentation of Mechanical Device: Intermittent pneumatic compression device Consult Discharge Plan - Plan Referrals: Dean Landeros MD [Primary Care Provider] - 04/22/17 11:00 am
--- NOTE | 2017-04-08 11:28 | General Surgery Progress Note ---
<Renetta Rosa Suellen - Last Filed: 04/08/17 11:25> Date of Encounter: 04/08/17 Time of Encounter: 10:30 - Assessment and Plan (1) Free intraperitoneal air Current Visit: Yes Status: Acute Continue conservative treatment Repeat CT abdomen/pelvis with PO contrast today due to increase in abdominal pain Suspect that increase in pain is most likely a result of the progression of the patient's metastatic cancer Clear liquids as tolerated IV antibiotics- Zosyn Serial abdominal exams Free fluid on CT is most consistent with ascites consistent with progression of the patient's colon cancer Surgical intervention not recommended at this time Patient prognosis is poor and recommend considering palliative care/hospice evaluation (2) Abdominal pain Current Visit: Yes Status: Acute Continue conservative treatment Repeat CT abdomen/pelvis with PO contrast today due to increase in abdominal pain Suspect that increase in pain is most likely a result of the progression of the patient's metastatic cancer Clear liquids as tolerated IV antibiotics- Zosyn Serial abdominal exams Free fluid on CT is most consistent with ascites consistent with progression of the patient's colon cancer Surgical intervention not recommended at this time Patient prognosis is poor and recommend considering palliative care/hospice evaluation Qualifiers: Abdominal location: generalized Qualified Code(s): R10.84 - Generalized abdominal pain (3) Colon cancer Current Visit: Yes Status: Chronic Patient follows with [facility]- Dr. Evan Gordon following Surgical intervention not recommended at this time Patient prognosis is poor and recommend considering palliative care/hospice evaluation Qualifiers: Colon location: transverse Qualified Code(s): C18.4 - Malignant neoplasm of transverse colon Subjective Patient reports: still having pain (patient reports that pain is unchanged), no flatus, no bowel movement, afebrile, other (States that he has no appetite) Objective Vital Signs - Last 8 Hours Temp Pulse Resp BP Pulse Ox 04/08/17 11:00 74 24 114/66 95 04/08/17 10:06 81 28 130/80 95 04/08/17 09:00 80 28 114/67 95 04/08/17 08:00 98.3 F 85 28 118/74 96 04/08/17 07:37 98.3 F 04/08/17 07:00 84 24 132/79 95 04/08/17 06:00 68 18 110/57 95 04/08/17 05:00 78 28 105/68 94 04/08/17 04:24 97.5 F L 04/08/17 04:00 86 22 101/57 93 Intake and Output 04/07/17 04/08/17 04/08/17 23:59 07:59 15:59 Intake Total 1200 / 1200 133 / 133 Output Total 250 / 250 1999 Balance 950 / 950 -1867 / -1867 Intake: IV Fluids 1200 / 1200 133 / 133 PRECEDEX Premix 400 mcg In 100 100 / 100 33 / 33 ml @ 0.2 MCG/KG/HR 4.49 mls/hr IVC .[id number] [facility] Rx#:[id number] Lactated Ringers 1,000 ML @ 75 1000 / 1000 mls/hr IVC .[id number] [facility] Rx#: [id number] Zosyn 3.375 GM In Dextrose 5% ( 100 / 100 100 / 100 Minibag+) 100 ML 100 ML @ 25 mls/hr IVPB Q8HR [facility] Rx#: [id number] Output: Catheter 250 / 250 1999 Other: Weight 88 kg Blood Glucose* 109 113 Patient Weight 04/08/17 23:59 Weight 88 kg - General physical appearance well developed, well nourished, moderate distress, moderate pain, chronically ill - Eyes normal ocular movement - ENT normal mucosa, atraumatic, normocephalic - Neck Neck exam: trachea midline - Respiratory normal respiratory effort, clear to auscultation, other (diminished bibasilar bases) - Cardiovascular Cardiovascular exam: Present: RRR - Abdomen Abdomen: Present: soft, distended, tender Abdominal Tenderness: diffusely - Genitourinary other (arreola catheter to SD with dhaliwal yellow urine noted) - Integumentary no rash, no growths, no abnormal pigmentation - Neurologic CN 2-12 grossly intact - Psychiatric oriented to person, oriented to place, speech is normal - Labs 04/08/17 02:57 04/08/17 02:57 Diabetes panel 04/08/17 Range/Units 02:57 Sodium 146 H (136-145) mEq/L Potassium 3.6 (3.5-4.5) mEq/L Chloride 115 H (98-109) mEq/L Carbon Dioxide 20 (19-29) mEq/L BUN 32 H (8-26) mg/dL Creatinine 0.88 (0.72-1.25) mg/dL Glucose 103 H (70-99) mg/dL Calcium 9.1 (8.6-10.8) mg/dL Calcium panel 04/08/17 Range/Units 02:57 Calcium 9.1 (8.6-10.8) mg/dL Pituitary panel 04/08/17 Range/Units 02:57 Sodium 146 H (136-145) mEq/L Potassium 3.6 (3.5-4.5) mEq/L Chloride 115 H (98-109) mEq/L Carbon Dioxide 20 (19-29) mEq/L BUN 32 H (8-26) mg/dL Creatinine 0.88 (0.72-1.25) mg/dL Glucose 103 H (70-99) mg/dL Calcium 9.1 (8.6-10.8) mg/dL Adrenal panel 04/08/17 Range/Units 02:57 Sodium 146 H (136-145) mEq/L Potassium 3.6 (3.5-4.5) mEq/L Chloride 115 H (98-109) mEq/L Carbon Dioxide 20 (19-29) mEq/L BUN 32 H (8-26) mg/dL Creatinine 0.88 (0.72-1.25) mg/dL Glucose 103 H (70-99) mg/dL Calcium 9.1 (8.6-10.8) mg/dL - VTE Documentation of Mechanical Device: Intermittent pneumatic compression device Consult Discharge Plan - Plan Referrals: Dean Landeros MD [Primary Care Provider] - 04/22/17 11:00 am - Attending Attestation For this encounter, I have reviewed the [employer] SALESPERSON or PA documentation, treatment plan, and medical decision making; and I have had face to face time with this patient. <Patrick Faye - Last Filed: 04/08/17 14:44> Date of Encounter: 04/08/17 - Assessment and Plan (1) Free intraperitoneal air Current Visit: Yes Status: Acute (2) Acute kidney injury Current Visit: Yes Status: Resolved Objective Vital Signs - Last 8 Hours Temp Pulse Resp BP Pulse Ox 04/08/17 14:17 98 18 146/77 95 04/08/17 13:00 78 18 121/65 94 04/08/17 12:35 97.6 F 77 18 133/67 94 04/08/17 11:44 97.6 F 04/08/17 11:00 74 24 114/66 95 04/08/17 10:06 81 28 130/80 95 04/08/17 09:00 80 28 114/67 95 04/08/17 08:00 98.3 F 85 28 118/74 96 04/08/17 07:37 98.3 F 04/08/17 07:00 84 24 132/79 95 Intake and Output 04/07/17 04/08/17 04/08/17 23:59 07:59 15:59 Intake Total 1200 / 1200 133 / 133 Output Total 250 / 250 1999 / 1999 100 / 100 Balance 950 / 950 -1867 / -1867 -100 / -100 Intake: IV Fluids 1200 / 1200 133 / 133 PRECEDEX Premix 400 mcg In 100 100 / 100 33 / 33 ml @ 0.2 MCG/KG/HR 4.49 mls/hr IVC .[id number] [facility] Rx#:[id number] Lactated Ringers 1,000 ML @ 75 1000 / 1000 mls/hr IVC .[id number] [facility] Rx#: [id number] Zosyn 3.375 GM In Dextrose 5% ( 100 / 100 100 / 100 Minibag+) 100 ML 100 ML @ 25 mls/hr IVPB Q8HR [facility] Rx#: [id number] Output: Catheter 250 / 250 1999 100 / Other: Weight 88 kg Blood Glucose* 109 113 167 Patient Weight 04/08/17 23:59 Weight 88 kg - Labs 04/08/17 02:57 04/08/17 02:57 Diabetes panel 04/08/17 Range/Units 02:57 Sodium 146 H (136-145) mEq/L Potassium 3.6 (3.5-4.5) mEq/L Chloride 115 H (98-109) mEq/L Carbon Dioxide 20 (19-29) mEq/L BUN 32 H (8-26) mg/dL Creatinine 0.88 (0.72-1.25) mg/dL Glucose 103 H (70-99) mg/dL Calcium 9.1 (8.6-10.8) mg/dL Calcium panel 04/08/17 Range/Units 02:57 Calcium 9.1 (8.6-10.8) mg/dL Pituitary panel 04/08/17 Range/Units 02:57 Sodium 146 H (136-145) mEq/L Potassium 3.6 (3.5-4.5) mEq/L Chloride 115 H (98-109) mEq/L Carbon Dioxide 20 (19-29) mEq/L BUN 32 H (8-26) mg/dL Creatinine 0.88 (0.72-1.25) mg/dL Glucose 103 H (70-99) mg/dL Calcium 9.1 (8.6-10.8) mg/dL Adrenal panel 04/08/17 Range/Units 02:57 Sodium 146 H (136-145) mEq/L Potassium 3.6 (3.5-4.5) mEq/L Chloride 115 H (98-109) mEq/L Carbon Dioxide 20 (19-29) mEq/L BUN 32 H (8-26) mg/dL Creatinine 0.88 (0.72-1.25) mg/dL Glucose 103 H (70-99) mg/dL Calcium 9.1 (8.6-10.8) mg/dL - Attending Attestation I reviewed the above assessment and evaluation with the [employer] SALESPERSON and agree with the above plan. Increasing abdominal pain today. Poor appetite. Repeat CT scan performed today which shows increasing free air. Noted ascities fluid. Discussed at length with patient family regarding risks and benefits of surgery , particularly that surgery would not be curative and that, unfortunately, the creation of an ostomy would be performed in a field of carcinomatosis. Overall , the family's main concern is to keep him comfortable and to not prolong any pain or suffering, and they have decided to proceed with hospice. I've discussed this with the hospitalist and with the oncologist loss control representative who agree with the above plan.
[2017-04-08] MEDS ORDERED: *HR* Morphine 2 MG/ML SYRINGE ONE (15:49)
--- NOTE | 2017-04-08 15:53 | Palliative - Consult Note ---
Date of Encounter: 04/08/17 Time of Encounter: 15:45 - Assessment and Plan (1) Abdominal pain Current Visit: Yes Status: Acute Assessment and plan: In distress with pain at this time. Increase Morphine to 4mg every 30 min and get his pain under better control. Qualifiers: Abdominal location: generalized Qualified Code(s): R10.84 - Generalized abdominal pain (2) Restlessness Current Visit: Yes Status: Acute Assessment and plan: Schedule IV Haloperidol. He does not tolerate Lorazepam (3) Counseling regarding advanced care planning and goals of care Current Visit: Yes Status: Acute Assessment and plan: Patient asking to go home, does not want to pass while in the hospital. Met with , tearful, asking to take him home this evening. Discussed hospice care, which she is agreeable. Offered to keep him here over weekend for symptom management, and she again wants to fulfill his wish to take him home. They requested [facility]. I did notify them, but they have other admissions this evening, and would be very late before admission could take place. Family 2nd choice was [facility]. They do feel they can accomodate pt this evening, and set up Morphine pump and hospital bed. (4) Free intraperitoneal air Current Visit: Yes Status: Acute (5) Colon cancer Current Visit: Yes Status: Chronic Qualifiers: Colon location: transverse Qualified Code(s): C18.4 - Malignant neoplasm of transverse colon Palliative-CN HPI - Data of Consult Consult date: 04/08/17 Requesting Physician: Cecelia Adams MD Primary Care Provider: Dean Landeros MD - Consult Narrative History of present illness: Mr. Harley is a 66 year old male with a history of colon cancer, who presented to [facility] with increased abd pain and distention. He was found to have bowel perforation with free air on CT scan. Patient poor surgical candidate, so he was treated conservatively with bowel rest and antibiotics. He did have adverse effects with possibly Lorazepam and Hydromorphone and became combative. Required transfer to ICU and he was temporarily placed on Precedex, however, that was weaned off and discontinued. Appeared to stabilize for a few days, but again today had increased distention and severe abd pain. CT scan repeated and free air has progressed. Surgery met with pt family and disclosed this information. Not a candidate for surgery. Code status transitioned to DNR. Palliative was consulted for pain management and possible transition to hospice . CC: Cecelia Adams MD Past Med Surg Social Fam HX - Past Medical History Medical history: cancer, hyperlipidemia, hypertension, other Psychiatric history: no psych history - Past Surgical History Surgical History: other - Social History Smoking Status: Current some day smoker Smokeless Tobacco Status: No Alcohol use: none Drug use: none - Family History Father Living Status: Hx Family Cancer: Yes (colon) Medications and Allergies Amlodipine Besylate 10 mg PO DAILY 04/15/16 [History] Atenolol 100 mg PO DAILY 04/15/16 [History] Cholecalciferol (Vitamin D3) [Vitamin D3] 5,000 unit PO DAILY 04/15/16 [History] Fluticasone Propionate Nasal [Flonase] 50 mcg NS BID PRN 04/15/16 [History] Glucosamine Sulfate Dipot Chlr [Glucosamine] 1,000 mg PO BID 04/15/16 [History] Ondansetron [Zofran] 4 mg PO Q8HR PRN #90 tablet 05/14/16 [Rx] Prochlorperazine Maleate [Compazine] 10 mg PO Q8HR PRN #90 tablet 05/14/16 [Rx] OxyCODONE Immed Rel [Roxicodone 5 MG] 5 mg PO DAILY PRN #30 tab 01/07/17 [Rx] Gabapentin [Neurontin] 100 mg PO QAM 02/28/17 [History] Gabapentin [Neurontin] 200 mg PO BID 02/28/17 [History] Capecitabine [Xeloda] 1,500 mg PO BID #112 tablet 03/08/17 [Rx] Lidocaine/Prilocaine CREAM [Emla] 1 gm TP AD PRN 04/04/17 [History] Omeprazole [PriLOSEC] 40 mg PO DAILY 04/04/17 [History] 3 Allergy/AdvReac Type Severity Reaction Status Date / Time lisinopril Allergy Swelling Verified 04/04/17 13:54 of Lip/Tongue/Throat ROS unobtainable: due to mental status Palliative Care-Exam - Constitutional Vitals: Temp Pulse Resp BP Pulse Ox 97.6 F 98 18 146/77 95 04/08/17 12:35 04/08/17 14:17 04/08/17 14:17 04/08/17 14:17 04/08/17 14:17 General appearance: Present: mild distress - Head Head Exam: Present: normal inspection, normocephalic - Eye Eye exam: Present: normal appearance, PERRL - Respiratory Respiratory exam: Present: decreased breath sounds, CTAB - Cardiovascular Cardiovascular exam: Present: +S1, +S2 - GI/Abdominal Exam GI/Abdominal exam: Present: distended, firm, rigid, tenderness - Catheter Type: Urethral (Nayak) - Neurological Exam Neurological exam: Present: alert, altered - Psychiatric Psychiatric exam: Present: anxious Internal Medicine - CN: Reslt - Labs CBC & Chem 7: 04/08/17 02:57 04/08/17 02:57 Labs: Short CBC 04/08/17 Range/Units 02:57 WBC 11.2 H (4.3-11.1) K/mcL Hgb 9.2 L (12.9-16.9) g/dL Hct 29.6 L (37.5-50.1) % Plt Count 278 (140-400) K/mcL Neutrophils # 8.7 (1.6-8.9) K/mcL BMP 04/08/17 02:57 Sodium 146 H Potassium 3.6 Chloride 115 H Carbon Dioxide 20 BUN 32 H Creatinine 0.88 Glucose 103 H Calcium 9.1 - ABG Interpretation ABG results: ABG ABG pH 7.41 pH Units (7.32-7.45) 04/06/17 20:39 ABG pCO2 27 mmHg (35-45) L 04/06/17 20:39 ABG pO2 75 mmHg (85-104) L 04/06/17 20:39 ABG O2 Saturation 95 % (95-98) 04/06/17 20:39 PT/INR, D-dimer PT 16.5 Seconds (9.4-12.1) H 04/04/17 16:06 - Impressions Impressions Abdomen/Pelvis CT 04/08/17 15:15 IMPRESSION: 1. Large amount of free intraperitoneal air. The source of the air is favored to be along the undersurface of a known long segment proximal transverse colon carcinoma. 2. Extensive omental metastatic disease. 3. Moderate amount of complex ascites. 4. Trace bilateral pleural effusions. Critical results were discussed by Dr. Yogesh Koenig MD with Dr. Faye on 04/08/2017 at 2:30 p.m. D/ / 04/08/2017 14:48:34 Yogesh Koenig MD / dee Interpreting Provider: Yogesh Koneig MD Head CT 04/08/17 15:15 IMPRESSION: No acute intracranial abnormality. D/ / Shawn Franco MD / Shawn Franco MD Interpreting Provider: Shawn Franco MD Consult Discharge Plan - Plan Referrals: Dean Landeros MD [Primary Care Provider] - 04/22/17 11:00 am Palliative Quality Palliative Quality: Screen for Code Status: Yes, Screen for Goals of Care: Yes, Screen for Pain: Yes, If Pain Regimen Started, Initiate Bowel Regimen: NA, Screen for Nausea/Vomitting: Yes Code Status: 04/05/17 09:21 DNR [Resuscitation Status: Active] [RES] Routine Comment: Resuscitation Status: DNR-Comfort Care-Arrest DNR [Resuscitation Status: Active] [RES] Routine Comment: Resuscitation Status: [id number]
--- NOTE | 2017-04-08 16:44 | Physician Discharge Referral ---
Home Health/Hosp Referral Info Transfer to: Hospice Provider in Charge Post Discharge: Director Of Career Resources - Diagnosis (1) Colon cancer Priority: Primary Status: Chronic (2) Free intraperitoneal air Priority: Secondary Status: Acute - Respiratory Orders Oxygen / L per min (5-10 LPM for comfort) Smoking Cessation: Smoking cessation has been advised. For more information, call the [place] Tobacco Quit Line at 1-415-FNOS-NOW. - Diet/Nutrition Diet/Nutrition: List: NPO , sips/chips for comfort - Activity Activity Orders: Bedrest - Services Needed Following services are medically necessary services: Nursing, Home Health Aide Other Treatments: Morphine continuous infusion 4mg/hr. May titrate by 1mg/hr for patient comfort. Bolus of 1mg every 10 minutes for breakthrough pain - Transfer Medications Prescriptions: Acetaminophen [Tylenol 650mg SUPP] 650 mg RC Q6HR PRN #20 supp.rect PRN Reason: Fever Atropine Sulfate in 0.9% NaCl [Atropine 0.01%-Ns Eye Drops] 2 drop SL Q60MIN PRN #30 drops PRN Reason: Upper airway secretions Haloperidol Oral Conc [Haldol] 2 mg PO Q6H #30 mls Home Medications: Amlodipine Besylate 10 mg PO DAILY 04/15/16 [History] Atenolol 100 mg PO DAILY 04/15/16 [History] Cholecalciferol (Vitamin D3) [Vitamin D3] 5,000 unit PO DAILY 04/15/16 [History] Fluticasone Propionate Nasal [Flonase] 50 mcg NS BID PRN 04/15/16 [History] Capecitabine [Xeloda] 1,500 mg PO BID #112 tablet 03/08/17 [Rx] Acetaminophen [Tylenol 650mg SUPP] 650 mg RC Q6HR PRN #20 supp.rect 04/08/17 [Rx ] Atropine Sulfate in 0.9% NaCl [Atropine 0.01%-Ns Eye Drops] 2 drop SL Q60MIN PRN #30 drops 04/08/17 [Rx] Haloperidol Oral Conc [Haldol] 2 mg PO Q6H #30 mls 04/08/17 [Rx] Allergies/Adverse Reactions: 3 Allergy/AdvReac Type Severity Reaction Status Date / Time lisinopril Allergy Swelling Verified 04/04/17 13:54 of Lip/Tongue/Throat Certification: Further, I certify that my clinical findings support that this patient is homebound (i.e. absences from home require considerable and taxing effort and are for medical reasons or nondenominational services or infrequently or short duration when for other reasons) because: Homebound Reason: Patient requires assistance of a person or device to safely leave home, Leaving home requires considerable and taxing effort due to condition Attestation: My signature below is to certify that this patient is under my care and that I, or nurse practitioner, or a physician's medication assistant working with me, has a face-to -face encounter with this patient.
--- NOTE | 2017-04-08 17:45 | Discharge Summary ---
Date of Encounter: 04/08/17 Time of Encounter: 17:43 - Discharge Diagnosis (1) Acute encephalopathy Priority: Primary Status: Acute (2) Perforated viscus Priority: Primary Status: Acute (3) Sepsis Priority: Primary Status: Resolved Qualifiers: Sepsis type: sepsis due to unspecified organism Qualified Code(s): A41.9 - Sepsis, unspecified organism (4) Acute kidney injury Priority: Primary Status: Resolved (5) Lactic acidosis Priority: Primary Status: Acute (6) Colon cancer Priority: Primary Status: Chronic Qualifiers: Colon location: transverse Qualified Code(s): C18.4 - Malignant neoplasm of transverse colon (7) Acute respiratory failure with hypoxia Priority: Primary Status: Acute - Discharge Medications Prescriptions: Acetaminophen [Tylenol 650mg SUPP] 650 mg RC Q6HR PRN #20 supp.rect PRN Reason: Fever Atropine Sulfate in 0.9% NaCl [Atropine 0.01%-Ns Eye Drops] 2 drop SL Q60MIN PRN #30 drops PRN Reason: Upper airway secretions Haloperidol Oral Conc [Haldol] 2 mg PO Q6H #30 mls Home Medications: Amlodipine Besylate 10 mg PO DAILY 04/15/16 [History] Atenolol 100 mg PO DAILY 04/15/16 [History] Cholecalciferol (Vitamin D3) [Vitamin D3] 5,000 unit PO DAILY 04/15/16 [History] Fluticasone Propionate Nasal [Flonase] 50 mcg NS BID PRN 04/15/16 [History] Capecitabine [Xeloda] 1,500 mg PO BID #112 tablet 03/08/17 [Rx] Acetaminophen [Tylenol 650mg SUPP] 650 mg RC Q6HR PRN #20 supp.rect 04/08/17 [Rx ] Atropine Sulfate in 0.9% NaCl [Atropine 0.01%-Ns Eye Drops] 2 drop SL Q60MIN PRN #30 drops 04/08/17 [Rx] Haloperidol Oral Conc [Haldol] 2 mg PO Q6H #30 mls 04/08/17 [Rx] Allergies/Adverse Reactions: 3 Allergy/AdvReac Type Severity Reaction Status Date / Time lisinopril Allergy Swelling Verified 04/04/17 13:54 of Lip/Tongue/Throat Procedures/tests Complete & Pending: Procedures Performed prior 72 hours Category Date Time Status CT abd pelvis wo no iv no oral [CT] Stat Cat Scan 04/08/17 15:[address] head/brain wo con [CT] Stat Cat Scan 04/08/17 15:15 Completed Date of admission: 04/05/17 07:34 Primary care physician: Dean Landeros MD Consults: 04/08/17 13:22 Consult to Palliative Care [CONS] Stat Comment: Consulting Provider: Palliative Care [facility] Reason for Consult: pain managment Call Completed: No Discharging clinician: Cecelia Adams Anticipated date of discharge: 04/08/17 - Patient Status Disposition: Hospice - Home Condition: Critical Functional capacity at discharge: bed bound Overall status at discharge: patient is not back to baseline - Discharge Instructions Follow Up With: Dean Landeros MD [Primary Care Provider] - 04/22/17 11:00 am Additional Instructions: F/up with [facility] - Diet and Activity Diet: advance to your usual diet Hospital course: Mr. Harley is a 66 year old male with h/o- unresectable transverse colon cancer with mets, was admitted with worsening abdominal pain and confusion. CT abdomen /pelvis done in the emergency room showed evidence of intraperitoneal free air and perforated viscus, with no clearly identified point. Surgery was consulted , recommended conservative management and patient was started on bowel rest, IV hydration and IV antibiotics-Zosyn. He was also noted to have acute renal failure and lactic acidosis, which have gradually improved. Patient received IV Dilaudid and Ativan after admission for pain control, after which he developed acute encephalopathy/delirium and progressively became more agitated and combative and had to be transferred to ICU for initiation of IV Precedex drip. Palliative care was recommended since admission, which patient's family has declined. His mental status gradually improved, with resolution of NGOC and improving leukocytosis and lactic acidosis. Surgery cleared patient to have clear liquids. He was noted to have increasing abdominal pain and distension today and repeat CT abdomen/pelvis showed copious amount of intraperitoneal free air, possibly from the cancer mass in transverse colon, and at this point, Hospice care was recommended by Surgery as he is not a surgical candidate and has a grave prognosis. Patient opted to be discharged home under Hospice and is agreeable to billy his wishes. Hospice and palliative care team was consulted and patient is being discharged home under comfort care. - Time Spent with Patient Total time spent providing and/or coordinating discharge services: Greater than 30 minutes (45 min) - Constitutional Vitals: Temp Pulse Resp BP Pulse Ox 97.6 F 101 18 145/76 95 04/08/17 12:35 04/08/17 16:00 04/08/17 16:00 04/08/17 16:00 04/08/17 16:00 General appearance: Present: A&O X 2, answers questions appropriately - Cardiovascular Cardiovascular exam: Present: RRR, +S1, +S2. Absent: diastolic murmur, gallop, rubs, systolic murmur - VTE Documentation of Mechanical Device: Intermittent pneumatic compression device
[2017-04-08] MEDS ORDERED: Haloperidol Lactate 5 MG/ML VIAL IVP SCH (18:00)
[2017-04-08 20:20] VITALS: BP 133/99
[2017-04-08] MEDS: Ondansetron 4 MG/2 ML VIAL IVP PRN (21:06)
== END 2017-04-08 21:15 | disposition hospice, home (50) | DRG 871 ==
LOC: 3ANU 13:06 → EMEROO 13:06 → SUATTDRO 17:04 → 3ANU 17:35 → SUATTDRO 04-05 07:34 → 2NNU 04-05 10:13 → ICNU 04-06 20:11
PROVIDERS: ADMIT Nurse Practitioner Acute Care; ATTEND Internal Medicine